=== PATIENT | male | born 1970 | race Caucasian/White ===

== ENCOUNTER 2017-07-08 08:32 | Emergency (ER) | payer OTHER ==
[~2017-07-08] VITALS: Ht 172.7 cm; Wt 76.6 kg
[~2017-07-08 08:32] MED LIST: ACET-784 PO; GABA600T PO; ISON300 PO; LAMO100 PO; LAMO100T56 PO; LEVE500T53 PO; OLAN5TAB2 PO; PHEN100C23 PO; PHEN250I IV; PHEN50TA PO; PHENY100 PO; QUET50TA PO; SEIZURE MED PO; TOPI100 PO; TOPI100T9 PO
[2017-07-08] MEDS ORDERED: PHENYTOIN SODIUM 750 MG in SODIUM CHLORIDE 0.9% 100 ML IV ONE (10:00)
[2017-07-08] MEDS ORDERED: LORazepam 2 MG/ML VIAL IVP ONE (10:00)
[2017-07-08] MEDS ORDERED: LORazepam 2 MG/ML VIAL ONE (10:01)
[2017-07-08 11:17] LABS: GLUCOSE,POINT OF CARE 113 MG/DL (70-110)
[2017-07-08 13:38] VITALS: BP 106/55
== END 2017-07-08 14:43 | disposition home or self-care (01) ==
LOC: EMS 08:34
DX: G40.909 Epilepsy, unspecified, not intractable, without status epilepticus (principal); R79.1 Abnormal coagulation profile
CPT/HCPCS: 36415; 80185; 82962; 96365; 96366; 96375; 99285; J1165; J2060; J7050; 99284

== ENCOUNTER 2023-03-22 06:48 | Inpatient (IN) | payer MEDICAID, OTHER ==
[~2023-03-22] VITALS: Ht 172.7 cm; Wt 69.3 kg
[~2023-03-22 06:48] MED LIST changes: -ACET-784 PO; +CARB100 PO; +GABA-1216 PO; -GABA600T PO; -ISON300 PO; -LAMO100 PO; -LAMO100T56 PO; -LEVE500T53 PO; -OLAN5TAB2 PO; -PHEN250I IV; -PHEN50TA PO; -PHENY100 PO; -QUET50TA PO; -SEIZURE MED PO; -TOPI100 PO; -TOPI100T9 PO
[2023-03-22 08:38] LABS: BASOPHILS % (AUTO) 0.7 % (0.0-2.0); EOSINOPHILS % (AUTO) 0.3 % (1.0-6.0); HEMATOCRIT 42.9 % (41-53); LYMPHOCYTES # (AUTO) 0.7 K/uL (1.0-4.8); LYMPHOCYTES % (AUTO) 9.2 % (22.0-44.0); MEAN CORPUSCULAR HEMOGLOBIN 28.5 pg (26.0-34.0); MEAN CORPUSCULAR HGB CONC 32.5 G/dL (31.0-37.0); MEAN CORPUSCULAR VOLUME 88 fL (80-100); MONOCYTES # (AUTO) 0.2 K/uL (0.1-1.0); MONOCYTES % (AUTO) 2.9 % (2.0-9.0); NEUTROPHILS # (AUTO) 6.4 K/uL (1.8-7.7); PLATELET COUNT (AUTO) 161 K/uL (150-450); RED CELL DISTRIBUTION WIDTH 15.5 % (11.5-14.5)
[2023-03-22 08:39] LABS: NEUTROPHILS % (AUTO) 86.9 % (40.0-70.0)
[2023-03-22 08:53] LABS: ANION GAP 9 mmol/L (8-16); CALCIUM, TOTAL 9.1 mg/dL (8.8-10.5); CARBON DIOXIDE 24 mmol/L (22-29); CHLORIDE 105 mmol/L (98-107); CREATININE 0.78 mg/dL (0.60-1.30); GLOMERULAR FILTR. RATE CALC > 60 mL/min (>60); GLUCOSE,RANDOM 95 mg/dL (70-110); POTASSIUM 4.2 mmol/L (3.5-5.1); SODIUM SERUM 138 mmol/L (136-145); UREA NITROGEN, BLOOD 9 mg/dL (7-18)
[2023-03-22 08:59] LABS: ALANINE AMINOTRANSFERASE 27 U/L (12-78); ALBUMIN 3.9 g/dL (3.4-5.0); ALKALINE PHOSPHATASE 63 U/L (46-116); ASPARTATE AMINOTRANSFERASE 29 U/L (15-37); BILIRUBIN,TOTAL 0.5 mg/dL (0.1-1.0); TOTAL PROTEIN, SERUM 7.5 g/dL (6.4-8.2)
[2023-03-22 09:01] LABS: PHENYTOIN (DILANTIN) < 0.5 mcg/mL (10.0-20.0)
[2023-03-22] MEDS ORDERED: PHENYTOIN SODIUM 100 MG ER CAPSULE PO ONE (09:15)
[2023-03-22] MEDS ORDERED: PHENYTOIN SODIUM 500 MG in SODIUM CHLORIDE 0.9% 100 ML IV ONE (09:15)
[2023-03-22] MEDS ORDERED: LORazepam 2 MG/ML VIAL IVP ONE (10:00)
[2023-03-22] MEDS ORDERED: ACETAMINOPHEN 325 MG TABLET PO PRN (10:45)
[2023-03-22] MEDS ORDERED: LORazepam 2 MG/ML VIAL IVP PRN (10:45)
[2023-03-22] MEDS ORDERED: ONDANSETRON HCL 4 MG/2 ML VIAL IVP PRN (10:45)
[2023-03-22] MEDS ORDERED: CARB200T6 PO (11:04)
[2023-03-22] MEDS ORDERED: LEVE750T10 PO (11:04)
[2023-03-22] MEDS: HEPARIN SODIUM,PORCINE 5,000 UNITS/ML VIAL SQ SCH (16:21)
[2023-03-22] MEDS ORDERED: PHENYTOIN 100 MG/4 ML SUSPENSION UDCUP PO SCH (21:00)
[2023-03-22] MEDS: DOCUSATE SODIUM 100 MG CAPSULE PO SCH (21:00)
[2023-03-22 22:09] VITALS: BP 110/71
[2023-03-23] MEDS: NICOTINE 14 MG/24 HOUR PATCH TD SCH ×2 (00:01→09:03)
[2023-03-23 01:13] VITALS: BP 106/65
[2023-03-23 05:29] VITALS: BP 100/69
[2023-03-23 08:36] VITALS: BP 102/70
[2023-03-23] MEDS ORDERED: FAMOTIDINE 20 MG TABLET PO SCH (09:00)
[2023-03-23] MEDS: DOCUSATE SODIUM 100 MG CAPSULE PO SCH (09:00)
[2023-03-23] MEDS: HEPARIN SODIUM,PORCINE 5,000 UNITS/ML VIAL SQ SCH ×2 (09:02)
[2023-03-23 12:05] VITALS: BP 102/71
== END 2023-03-23 13:35 | disposition left against medical advice (07) | DRG 53 ==
LOC: EMS 06:49 → AHU 12:29 → 5S 18:43
PROVIDERS: ADMIT Internal Medicine; ATTEND Internal Medicine
DX: G40.909 Epilepsy, unspecified, not intractable, without status epilepticus (principal); Z87.820 Personal history of traumatic brain injury; Z91.199 Patient's noncompliance with other medical treatment and regimen due to unspecified reason; Z87.891 Personal history of nicotine dependence
CPT/HCPCS: 70450; 71045; 80053; 80185; 85025; 87081; 93005; 97116; 97161; 99285; J1165; J1644; J2060; J7050; 36415-L1; 36415-TC

== ENCOUNTER 2023-06-30 18:05 | Inpatient (IN) | payer OTHER ==
[~2023-06-30] VITALS: Ht 177.8 cm; Wt 77.5 kg
[~2023-06-30 18:05] MED LIST changes: -CARB100 PO; +CARB100T12 PO; +CARB200T6 PO; +LEVE750T10 PO; +PHEN100C10 PO
[2023-06-30 19:31] LABS: BASOPHILS % (AUTO) 0.8 % (0.0-2.0); EOSINOPHILS % (AUTO) 1.1 % (1.0-6.0); HEMATOCRIT 40.7 % (41-53); LYMPHOCYTES # (AUTO) 1.2 K/uL (1.0-4.8); LYMPHOCYTES % (AUTO) 25.8 % (22.0-44.0); MEAN CORPUSCULAR HEMOGLOBIN 27.1 pg (26.0-34.0); MEAN CORPUSCULAR HGB CONC 31.9 G/dL (31.0-37.0); MEAN CORPUSCULAR VOLUME 85 fL (80-100); MONOCYTES # (AUTO) 0.4 K/uL (0.1-1.0); MONOCYTES % (AUTO) 8.1 % (2.0-9.0); NEUTROPHILS % (AUTO) 64.2 % (40.0-70.0); PLATELET COUNT (AUTO) 183 K/uL (150-450); RED BLOOD CELL COUNT(AUTO) 4.78 MIL/uL (4.50-5.90); RED CELL DISTRIBUTION WIDTH 13.8 % (11.5-14.5)
[2023-06-30 19:39] LABS: ANION GAP 10 mmol/L (8-16); CALCIUM, TOTAL 9.1 mg/dL (8.8-10.5); CARBON DIOXIDE 25 mmol/L (22-29); CHLORIDE 105 mmol/L (98-107); CREATININE 0.96 mg/dL (0.60-1.30); GLOMERULAR FILTR. RATE CALC > 60 mL/min (>60); GLUCOSE,RANDOM 97 mg/dL (70-110); SODIUM SERUM 140 mmol/L (136-145)
[2023-06-30] MEDS ORDERED: SODIUM CHLORIDE 0.9% 1,000 ML IV ONE (19:45)
[2023-06-30 20:04] LABS: ALANINE AMINOTRANSFERASE 15 U/L (12-78); ALBUMIN 3.8 g/dL (3.4-5.0); ALKALINE PHOSPHATASE 60 U/L (46-116); ASPARTATE AMINOTRANSFERASE 14 U/L (15-37); BILIRUBIN,TOTAL 0.7 mg/dL (0.1-1.0); CREATINE KINASE, TOTAL ONLY 90 U/L (39-308); PHENYTOIN (DILANTIN) < 0.5 mcg/mL (10.0-20.0); TOTAL PROTEIN, SERUM 8.1 g/dL (6.4-8.2)
[2023-06-30 20:05] LABS: CARBAMAZEPINE (TEGRETOL) < 0.5 mcg/mL (4.0-12.0)
[2023-06-30 20:12] LABS: APPEARANCE,URINE CLEAR (CLEAR); BILIRUBIN,URINE NEGATIVE (NEGATIVE); GLUCOSE, URINE (UA) NEGATIVE (NEGATIVE); KETONES,URINE NEGATIVE (NEGATIVE); LEUKOCYTE ESTERASE ,URINE NEGATIVE (NEGATIVE); NITRATE,URINE NEGATIVE (NEGATIVE); OCCULT BLOOD,URINE NEGATIVE (NEGATIVE); PROTEIN,URINE 30-70 mg/dL (NEGATIVE); SPECIFIC GRAVITIY, URINE 1.038 (1.003-1.030); UROBILINOGEN,URINE <=1.0 mg/dL (<=1.0)
[2023-06-30] MEDS ORDERED: CarBAMazepine 200 MG TABLET PO ONE (20:15)
[2023-06-30] MEDS ORDERED: PHENYTOIN SODIUM 100 MG ER CAPSULE PO ONE (20:15)
[2023-06-30 20:19] LABS: AMPHET/METH SCREEN,URINE NEGATIVE (NEGATIVE); BARBITURATE SCREEN, URINE NEGATIVE (NEGATIVE); BENZODIAZEPINES SCREEN,URINE NEGATIVE (NEGATIVE); CANNABINOID SCREEN,URINE NEGATIVE (NEGATIVE); COCAINE SCREEN,URINE NEGATIVE (NEGATIVE); METHADONE SCREEN, URINE NEGATIVE (NEGATIVE); OPIATE SCREEN,URINE NEGATIVE (NEGATIVE); PHENCYCLIDINE SCREEN,URINE NEGATIVE (NEGATIVE)
[2023-06-30] MEDS ORDERED: ONDANSETRON HCL 4 MG/2 ML VIAL IVP PRN (20:45)
[2023-06-30] MEDS ORDERED: ACETAMINOPHEN 325 MG TABLET PO PRN (20:45)
[2023-06-30 23:01] VITALS: BP 111/74; PULSE 75; RESP 20; TEMP 97.6
[2023-07-01 04:10] VITALS: BP 128/74; PULSE 73; RESP 16; TEMP 97.7
[2023-07-01 07:11] VITALS: BP 102/56; PULSE 71; RESP 18; TEMP 97.4
[2023-07-01 10:51] VITALS: BP 97/58; PULSE 71; RESP 19; TEMP 98
[2023-07-01] MEDS ORDERED: MORPHINE SULFATE 2 MG/ML SYRINGE IVP PRN (12:15)
[2023-07-01] MEDS ORDERED: PHENYTOIN SODIUM 750 MG in SODIUM CHLORIDE 0.9% 100 ML IV ONE (12:15)
[2023-07-01] MEDS ORDERED: ALBUTEROL SULFATE 2.5 MG/0.5 ML NEB SOLUTION NEB PRN (12:15)
[2023-07-01] MEDS ORDERED: ONDANSETRON HCL 4 MG/2 ML VIAL IVP PRN (12:15)
[2023-07-01] MEDS ORDERED: ZOLPIDEM TARTRATE 5 MG TABLET PO PRN (12:15)
[2023-07-01] MEDS ORDERED: BISACODYL 10 MG RECTAL RECTAL SUPPOSITORY PR PRN (12:15)
[2023-07-01] MEDS ORDERED: PHENYTOIN SODIUM 100 MG ER CAPSULE PO SCH (12:15)
[2023-07-01] MEDS ORDERED: IPRATROPIUM BROMIDE 0.5 MG/2.5 ML NEB SOLUTION NEB PRN (12:15)
[2023-07-01] MEDS ORDERED: MAGNESIUM HYDROXIDE SUSPENSION 30 ML UDCUP PO PRN (12:15)
[2023-07-01] MEDS ORDERED: SODIUM CHLORIDE 0.9% 250 ML IV ONE (13:21)
[2023-07-01] MEDS: GABAPENTIN 100 MG CAPSULE PO SCH (13:25)
[2023-07-01] MEDS: LevETIRAcetam 250 MG TABLET PO SCH ×2 (13:25→20:47)
[2023-07-01 14:55] VITALS: BP 108/65; PULSE 78; RESP 19; TEMP 98.2
[2023-07-01] MEDS ORDERED: LORazepam 2 MG/ML VIAL IVP ONE (15:30)
[2023-07-01] MEDS ORDERED: LORazepam 2 MG/ML VIAL ONE (15:31)
[2023-07-01] MEDS: HEPARIN SODIUM,PORCINE 5,000 UNITS/ML VIAL SQ SCH (17:29)
[2023-07-01] MEDS: CarBAMazepine 200 MG TABLET PO SCH ×2 (17:29→20:47)
[2023-07-01 20:29] VITALS: BP 110/72; PULSE 91; RESP 18; TEMP 98
[2023-07-01] MEDS: PHENYTOIN SODIUM 100 MG ER CAPSULE PO SCH (20:46)
[2023-07-02] MEDS: HEPARIN SODIUM,PORCINE 5,000 UNITS/ML VIAL SQ SCH ×3 (00:41→15:56)
[2023-07-02 00:55] VITALS: BP 136/82; PULSE 96; RESP 18; TEMP 97.9
[2023-07-02] MEDS ORDERED: LORazepam 2 MG/ML VIAL IVP ONE (04:45)
[2023-07-02 05:28] VITALS: BP 112/68; PULSE 98; RESP 17; TEMP 98
[2023-07-02 07:45] VITALS: BP 101/62; PULSE 55; RESP 20; TEMP 97.4
[2023-07-02] MEDS: LevETIRAcetam 250 MG TABLET PO SCH ×2 (08:15→21:21)
[2023-07-02] MEDS: CarBAMazepine 200 MG TABLET PO SCH ×3 (08:15→21:21)
[2023-07-02] MEDS: PHENYTOIN SODIUM 100 MG ER CAPSULE PO SCH ×2 (08:15→21:21)
[2023-07-02] MEDS: GABAPENTIN 100 MG CAPSULE PO SCH (08:15)
[2023-07-02] MEDS: PANTOPRAZOLE SODIUM 40 MG DR TABLET PO SCH (08:16)
[2023-07-02 12:07] LABS: CARBAMAZEPINE (TEGRETOL) 6.2 mcg/mL (4.0-12.0); PHENYTOIN (DILANTIN) 15.5 mcg/mL (10.0-20.0)
[2023-07-02 13:03] VITALS: BP 110/71; PULSE 91; RESP 18; TEMP 97.7
[2023-07-02 15:29] VITALS: BP 111/74; PULSE 96; RESP 18; TEMP 99.1
[2023-07-02 20:20] VITALS: BP 115/76; PULSE 87; RESP 19; TEMP 97.6
[2023-07-03 00:18] VITALS: BP 93/56; PULSE 82; RESP 17; TEMP 97.8
[2023-07-03 04:52] VITALS: BP 101/59; PULSE 81; RESP 17; TEMP 97.8
[2023-07-03 07:31] VITALS: BP 90/51; PULSE 83; RESP 17; TEMP 98
[2023-07-03] MEDS: HEPARIN SODIUM,PORCINE 5,000 UNITS/ML VIAL SQ SCH ×3 (09:32→16:41)
[2023-07-03] MEDS: CarBAMazepine 200 MG TABLET PO SCH ×3 (09:32→21:02)
[2023-07-03] MEDS: PHENYTOIN SODIUM 100 MG ER CAPSULE PO SCH ×2 (09:32→21:01)
[2023-07-03] MEDS: ACETAMINOPHEN 325 MG TABLET PO PRN (09:32)
[2023-07-03] MEDS: PANTOPRAZOLE SODIUM 40 MG DR TABLET PO SCH (09:32)
[2023-07-03] MEDS: LevETIRAcetam 250 MG TABLET PO SCH ×2 (09:33→21:01)
[2023-07-03] MEDS: GABAPENTIN 100 MG CAPSULE PO SCH (09:33)
[2023-07-03 11:51] VITALS: BP 102/71; PULSE 110; RESP 18; TEMP 97.7
[2023-07-03] MEDS: LORazepam 2 MG/ML VIAL IVP PRN ×2 (12:52→21:56)
[2023-07-03 19:41] VITALS: BP 103/61; PULSE 93; RESP 20; TEMP 98.4
[2023-07-03 23:33] VITALS: BP 103/68; PULSE 64; RESP 19; TEMP 97.6
[2023-07-04] MEDS: HEPARIN SODIUM,PORCINE 5,000 UNITS/ML VIAL SQ SCH ×4 (00:52→23:57)
[2023-07-04 04:13] VITALS: BP 100/62; PULSE 67; RESP 20; TEMP 97.9
[2023-07-04 07:37] VITALS: BP 113/66; PULSE 85; RESP 18; TEMP 98
[2023-07-04] MEDS: PANTOPRAZOLE SODIUM 40 MG DR TABLET PO SCH (09:02)
[2023-07-04] MEDS: PHENYTOIN SODIUM 100 MG ER CAPSULE PO SCH ×2 (09:02→20:00)
[2023-07-04] MEDS: CarBAMazepine 200 MG TABLET PO SCH ×3 (09:02→19:59)
[2023-07-04] MEDS: LevETIRAcetam 250 MG TABLET PO SCH ×2 (09:03→20:00)
[2023-07-04] MEDS: GABAPENTIN 100 MG CAPSULE PO SCH (09:03)
[2023-07-04 11:37] VITALS: BP 111/76; PULSE 85; RESP 18; TEMP 97.6
[2023-07-04 13:25] LABS: COVID AG,FIA SOURCE NASAL SWAB
[2023-07-04 15:43] VITALS: BP 93/56; PULSE 80; RESP 18; TEMP 97.8
[2023-07-04 20:00] VITALS: BP 115/68; PULSE 78; RESP 20; TEMP 97.6
[2023-07-05 00:14] VITALS: BP 106/69; PULSE 86; RESP 20; TEMP 97.6
[2023-07-05] MEDS: LORazepam 2 MG/ML VIAL IVP PRN (01:41)
[2023-07-05] MEDS ORDERED: HALOPERIDOL LACTATE 5 MG/ML VIAL IM ONE (01:45)
[2023-07-05 04:40] VITALS: BP 137/75; PULSE 84; RESP 20; TEMP 97.7
[2023-07-05 07:43] VITALS: BP 107/76; PULSE 82; RESP 28; TEMP 98
[2023-07-05] MEDS: HEPARIN SODIUM,PORCINE 5,000 UNITS/ML VIAL SQ SCH ×2 (09:53→16:34)
[2023-07-05] MEDS: PHENYTOIN SODIUM 100 MG ER CAPSULE PO SCH ×2 (09:54→20:34)
[2023-07-05] MEDS: GABAPENTIN 100 MG CAPSULE PO SCH (09:55)
[2023-07-05] MEDS: CarBAMazepine 200 MG TABLET PO SCH ×3 (09:55→20:34)
[2023-07-05] MEDS: LevETIRAcetam 250 MG TABLET PO SCH ×2 (09:55→20:34)
[2023-07-05] MEDS: PANTOPRAZOLE SODIUM 40 MG DR TABLET PO SCH (09:56)
[2023-07-05 11:14] VITALS: BP 98/69; PULSE 80; RESP 20; TEMP 98.2
[2023-07-05 15:26] VITALS: BP 92/68; PULSE 64; RESP 18; TEMP 98
[2023-07-05 20:00] VITALS: BP 109/77; PULSE 93; RESP 18; TEMP 98.1
[2023-07-05] MEDS: HYDROCODONE/ACETAMINOPHEN 5-325 MG TABLET PO PRN (20:15)
[2023-07-06 00:50] VITALS: BP 111/74; PULSE 95; RESP 18; TEMP 97.6
[2023-07-06] MEDS: HEPARIN SODIUM,PORCINE 5,000 UNITS/ML VIAL SQ SCH ×3 (00:58→16:42)
[2023-07-06] MEDS: ACETAMINOPHEN 325 MG TABLET PO PRN ×2 (03:36→20:30)
[2023-07-06 04:36] VITALS: BP 105/68; PULSE 87; RESP 18; TEMP 97.7
[2023-07-06 07:34] VITALS: BP 99/68; PULSE 88; RESP 18; TEMP 98.1
[2023-07-06] MEDS: GABAPENTIN 100 MG CAPSULE PO SCH (07:52)
[2023-07-06] MEDS: PHENYTOIN SODIUM 100 MG ER CAPSULE PO SCH ×2 (07:53→20:29)
[2023-07-06] MEDS: CarBAMazepine 200 MG TABLET PO SCH ×3 (07:53→20:29)
[2023-07-06] MEDS: LevETIRAcetam 250 MG TABLET PO SCH ×2 (07:53→20:29)
[2023-07-06] MEDS: PANTOPRAZOLE SODIUM 40 MG DR TABLET PO SCH (07:53)
[2023-07-06] MEDS: HYDROCODONE/ACETAMINOPHEN 5-325 MG TABLET PO PRN (09:23)
[2023-07-06 11:44] VITALS: BP 112/71; PULSE 90; RESP 18; TEMP 97
[2023-07-06 12:02] LABS: COVID AG,FIA SOURCE NASAL SWAB
[2023-07-06 15:44] VITALS: BP 92/62; PULSE 94; RESP 18; TEMP 98
[2023-07-06 19:45] VITALS: BP 114/68; PULSE 96; RESP 18; TEMP 98.9
== END 2023-07-06 21:55 | DRG 53 ==
LOC: EMS 18:06 → 5S 21:00
PROVIDERS: ADMIT Hospitalist; ATTEND Hospitalist
PROC: 4A00X4Z Measurement of Central Nervous Electrical Activity, External Approach (ICD-10-PCS; principal; 2023-06-30)
DX: G40.909 Epilepsy, unspecified, not intractable, without status epilepticus (principal); F29 Unspecified psychosis not due to a substance or known physiological condition; G47.00 Insomnia, unspecified; Z20.822 Contact with and (suspected) exposure to COVID-19; Z87.820 Personal history of traumatic brain injury; Z79.899 Other long term (current) drug therapy; Z87.891 Personal history of nicotine dependence
CPT/HCPCS: 70450; 70551; 71045; 80053; 80156; 80185; 80307; 81003; 82140; 82550; 85025; 93005; 95816; 99285; G0480; G0482; J1165; J1630; J1644; J2060; J7050; 36415-L1; 36415-TC

== ENCOUNTER 2023-07-04 10:54 | Inpatient (IN) | payer MEDICAID ==
[~2023-07-04] VITALS: Ht 170.2 cm; Wt 80.8 kg
[2023-07-06] MEDS ORDERED: LORazepam 2 MG TABLET PO PRN (16:30)
[2023-07-06] MEDS ORDERED: HALOPERIDOL 5 MG TABLET PO PRN (16:30)
[2023-07-06] MEDS ORDERED: ZOLPIDEM TARTRATE 10 MG TABLET PO PRN (16:30)
[2023-07-06] MEDS ORDERED: GuaiFENesin/D-METHORPHAN [SUGAR-FREE] 200-20MG/10 ML SYRUP UDCUP PO PRN (23:00)
[2023-07-06] MEDS ORDERED: DOCUSATE SODIUM 100 MG CAPSULE PO PRN (23:00)
[2023-07-06] MEDS ORDERED: MAGNESIUM HYDROXIDE SUSPENSION 30 ML UDCUP PO PRN (23:00)
[2023-07-06] MEDS ORDERED: LOPERAMIDE HCL 2 MG CAPSULE PO PRN (23:00)
[2023-07-06] MEDS ORDERED: IBUPROFEN 400 MG TABLET PO PRN (23:00)
[2023-07-06] MEDS ORDERED: NICOTINE 14 MG/24 HOUR PATCH TD PRN (23:00)
[2023-07-06] MEDS ORDERED: PETROLATUM,WHITE 28 GM JELLY TP PRN (23:00)
[2023-07-06] MEDS ORDERED: CloNIDine HCL 0.1 MG TABLET PO PRN (23:00)
[2023-07-06] MEDS ORDERED: ALBUTEROL SULFATE HFA 90 MCG/PUFF 8 GM INHALER IH PRN (23:00)
[2023-07-06] MEDS ORDERED: ONDANSETRON HCL 4 MG TABLET PO PRN (23:00)
[2023-07-06] MEDS ORDERED: MAG HYDROX/AL HYDROX/SIMETH ES 30 ML SUSPENSION UDCUP PO PRN (23:00)
[2023-07-06] MEDS ORDERED: ACETAMINOPHEN 325 MG TABLET PO PRN (23:00)
[2023-07-06 23:10] VITALS: BP 124/69; PULSE 88; RESP 19; TEMP 97.7; O2SAT 96
[2023-07-06 23:21] VITALS: BP 124/69; PULSE 88; RESP 19; TEMP 97.7
[2023-07-07] MEDS: CarBAMazepine 200 MG TABLET PO SCH ×3 (10:39→16:04)
[2023-07-07] MEDS: PANTOPRAZOLE SODIUM 40 MG DR TABLET PO SCH (10:39)
[2023-07-07] MEDS: LevETIRAcetam 250 MG TABLET PO SCH ×2 (10:40→16:05)
[2023-07-07] MEDS: PHENYTOIN SODIUM 100 MG ER CAPSULE PO SCH ×2 (10:40→16:04)
[2023-07-07 11:14] LABS: BASOPHILS % (AUTO) 0.6 % (0.0-2.0); EOSINOPHILS % (AUTO) 2.1 % (1.0-6.0); HEMATOCRIT 42.5 % (41-53); HEMOGLOBIN 13.9 g/dL (13.5-17.5); LYMPHOCYTES # (AUTO) 1.2 K/uL (1.0-4.8); LYMPHOCYTES % (AUTO) 25.6 % (22.0-44.0); MEAN CORPUSCULAR HEMOGLOBIN 27.9 pg (26.0-34.0); MEAN CORPUSCULAR HGB CONC 32.7 G/dL (31.0-37.0); MEAN CORPUSCULAR VOLUME 85 fL (80-100); MONOCYTES # (AUTO) 0.3 K/uL (0.1-1.0); NEUTROPHILS # (AUTO) 2.9 K/uL (1.8-7.7); NEUTROPHILS % (AUTO) 64.7 % (40.0-70.0); PLATELET COUNT (AUTO) 147 K/uL (150-450); RED BLOOD CELL COUNT(AUTO) 4.98 MIL/uL (4.50-5.90); RED CELL DISTRIBUTION WIDTH 14.1 % (11.5-14.5)
[2023-07-07 11:38] LABS: ALANINE AMINOTRANSFERASE 28 U/L (12-78); ALBUMIN 3.5 g/dL (3.4-5.0); ALKALINE PHOSPHATASE 65 U/L (46-116); ANION GAP 9 mmol/L (8-16); ASPARTATE AMINOTRANSFERASE 29 U/L (15-37); BILIRUBIN,TOTAL 0.2 mg/dL (0.1-1.0); CALCIUM, TOTAL 8.5 mg/dL (8.8-10.5); CARBON DIOXIDE 28 mmol/L (22-29); CHLORIDE 101 mmol/L (98-107); CREATININE 0.96 mg/dL (0.60-1.30); GLOMERULAR FILTR. RATE CALC > 60 mL/min (>60); GLUCOSE,RANDOM 93 mg/dL (70-110); POTASSIUM 4.4 mmol/L (3.5-5.1); SODIUM SERUM 138 mmol/L (136-145); THYROID STIMULATING HORMONE 1.58 uIU/mL (0.36-3.74); TOTAL PROTEIN, SERUM 7.1 g/dL (6.4-8.2)
[2023-07-07 12:03] LABS: HEMOGLOBIN A1C 5.4 % (3.8-5.6)
[2023-07-07 15:35] VITALS: BP 129/79; PULSE 80; RESP 18; TEMP 97.7; O2SAT 97
[2023-07-07 20:03] VITALS: BP 108/64; PULSE 93; RESP 18; TEMP 98.5; O2SAT 98
[2023-07-08 09:03] VITALS: BP 96/66; PULSE 76; RESP 18; TEMP 98.2; O2SAT 96
[2023-07-08] MEDS: CarBAMazepine 200 MG TABLET PO SCH ×3 (09:53→18:33)
[2023-07-08] MEDS: LevETIRAcetam 250 MG TABLET PO SCH ×2 (09:53→18:33)
[2023-07-08] MEDS: PANTOPRAZOLE SODIUM 40 MG DR TABLET PO SCH (09:54)
[2023-07-08] MEDS: PHENYTOIN SODIUM 100 MG ER CAPSULE PO SCH ×2 (09:54→18:33)
[2023-07-08 20:13] VITALS: BP 117/73; PULSE 79; RESP 18; TEMP 97.1; O2SAT 97
[2023-07-09 08:48] VITALS: BP 128/71; PULSE 83; RESP 17; TEMP 97.6; O2SAT 98
[2023-07-09] MEDS: PANTOPRAZOLE SODIUM 40 MG DR TABLET PO SCH (09:07)
[2023-07-09] MEDS: CarBAMazepine 200 MG TABLET PO SCH ×3 (09:07→18:21)
[2023-07-09] MEDS: LevETIRAcetam 250 MG TABLET PO SCH ×2 (09:07→18:21)
[2023-07-09] MEDS: PHENYTOIN SODIUM 100 MG ER CAPSULE PO SCH ×2 (09:08→18:21)
[2023-07-09] MEDS: RisperiDONE 2 MG TABLET PO SCH (09:08)
[2023-07-09 20:35] VITALS: BP 116/72; PULSE 89; RESP 16; TEMP 97.7; O2SAT 97
[2023-07-10 08:45] VITALS: BP 107/66; PULSE 78; RESP 17; TEMP 97; O2SAT 98
[2023-07-10] MEDS: LevETIRAcetam 250 MG TABLET PO SCH ×2 (09:43→16:40)
[2023-07-10] MEDS: CarBAMazepine 200 MG TABLET PO SCH ×3 (09:43→16:40)
[2023-07-10] MEDS: PHENYTOIN SODIUM 100 MG ER CAPSULE PO SCH ×2 (09:44→16:40)
[2023-07-10] MEDS: RisperiDONE 2 MG TABLET PO SCH (09:44)
[2023-07-10] MEDS: PANTOPRAZOLE SODIUM 40 MG DR TABLET PO SCH (09:44)
[2023-07-10 20:24] VITALS: BP 94/57; PULSE 90; RESP 18; TEMP 97.4
[2023-07-11 08:41] VITALS: BP 119/70; PULSE 89; RESP 18; TEMP 97.7; O2SAT 100
[2023-07-11] MEDS: PANTOPRAZOLE SODIUM 40 MG DR TABLET PO SCH (08:50)
[2023-07-11] MEDS: CarBAMazepine 200 MG TABLET PO SCH ×3 (08:50→17:10)
[2023-07-11] MEDS: LevETIRAcetam 250 MG TABLET PO SCH ×2 (08:50→17:11)
[2023-07-11] MEDS: RisperiDONE 2 MG TABLET PO SCH (08:50)
[2023-07-11 09:09] LABS: CARBAMAZEPINE (TEGRETOL) 4.6 mcg/mL (4.0-12.0); PHENYTOIN (DILANTIN) 13.7 mcg/mL (10.0-20.0)
[2023-07-11] MEDS: PHENYTOIN SODIUM 100 MG ER CAPSULE PO SCH ×2 (09:36→17:10)
[2023-07-11 20:43] VITALS: BP 107/64; PULSE 69; RESP 17; TEMP 98.5; O2SAT 97
[2023-07-12 00:15] VITALS: BP 138/87; PULSE 90; RESP 19; TEMP 97.1; O2SAT 99
[2023-07-12 00:30] VITALS: BP 117/71; PULSE 87; RESP 18; TEMP 98.5; O2SAT 97
[2023-07-12 01:00] VITALS: BP 104/74; PULSE 88; RESP 17; TEMP 97.7; O2SAT 99
[2023-07-12] MEDS: LevETIRAcetam 250 MG TABLET PO SCH ×2 (08:31→16:03)
[2023-07-12] MEDS: CarBAMazepine 200 MG TABLET PO SCH ×3 (08:32→16:04)
[2023-07-12] MEDS: GABAPENTIN 100 MG CAPSULE PO SCH (08:32)
[2023-07-12] MEDS: PANTOPRAZOLE SODIUM 40 MG DR TABLET PO SCH (08:32)
[2023-07-12] MEDS: PHENYTOIN SODIUM 100 MG ER CAPSULE PO SCH ×2 (08:32→16:04)
[2023-07-12] MEDS: RisperiDONE 2 MG TABLET PO SCH (08:32)
[2023-07-12 09:03] VITALS: BP 109/75; PULSE 89; RESP 18; TEMP 97.6; O2SAT 100
[2023-07-12 20:32] VITALS: BP 105/67; PULSE 93; RESP 19; TEMP 99; O2SAT 97
[2023-07-13] MEDS: LevETIRAcetam 250 MG TABLET PO SCH ×2 (08:13→16:10)
[2023-07-13] MEDS: PANTOPRAZOLE SODIUM 40 MG DR TABLET PO SCH (08:14)
[2023-07-13] MEDS: PHENYTOIN SODIUM 100 MG ER CAPSULE PO SCH ×2 (08:14→16:10)
[2023-07-13] MEDS: CarBAMazepine 200 MG TABLET PO SCH ×3 (08:14→16:10)
[2023-07-13] MEDS: RisperiDONE 2 MG TABLET PO SCH (08:14)
[2023-07-13] MEDS: GABAPENTIN 100 MG CAPSULE PO SCH (08:14)
[2023-07-13 08:24] VITALS: BP 106/69; PULSE 90; RESP 18; TEMP 97.7; O2SAT 95
[2023-07-13 22:19] VITALS: BP 103/63; PULSE 90; RESP 18; TEMP 97.7
[2023-07-14] MEDS: LevETIRAcetam 250 MG TABLET PO SCH ×2 (10:04→16:45)
[2023-07-14] MEDS: PHENYTOIN SODIUM 100 MG ER CAPSULE PO SCH ×2 (10:04→16:43)
[2023-07-14] MEDS: GABAPENTIN 100 MG CAPSULE PO SCH (10:05)
[2023-07-14] MEDS: RisperiDONE 2 MG TABLET PO SCH (10:05)
[2023-07-14] MEDS: CarBAMazepine 200 MG TABLET PO SCH ×3 (10:05→16:42)
[2023-07-14] MEDS: PANTOPRAZOLE SODIUM 40 MG DR TABLET PO SCH (10:07)
[2023-07-14 13:50] VITALS: BP 109/76; PULSE 87; RESP 18; TEMP 98.1
[2023-07-14 19:59] VITALS: BP 118/74; PULSE 90; RESP 19; TEMP 98.1; O2SAT 95
[2023-07-15] MEDS: PHENYTOIN SODIUM 100 MG ER CAPSULE PO SCH ×2 (09:14→16:36)
[2023-07-15] MEDS: GABAPENTIN 100 MG CAPSULE PO SCH (09:15)
[2023-07-15] MEDS: LevETIRAcetam 250 MG TABLET PO SCH ×2 (09:15→16:37)
[2023-07-15] MEDS: CarBAMazepine 200 MG TABLET PO SCH ×3 (09:15→16:37)
[2023-07-15] MEDS: RisperiDONE 2 MG TABLET PO SCH (09:15)
[2023-07-15] MEDS: PANTOPRAZOLE SODIUM 40 MG DR TABLET PO SCH (09:16)
[2023-07-15 09:20] VITALS: BP 98/64; PULSE 99; RESP 18; TEMP 97.8; O2SAT 97
[2023-07-15 20:23] VITALS: BP 109/73; PULSE 93; RESP 18; TEMP 97.4; O2SAT 97
[2023-07-16] MEDS: PHENYTOIN SODIUM 100 MG ER CAPSULE PO SCH ×2 (08:30→16:00)
[2023-07-16] MEDS: PANTOPRAZOLE SODIUM 40 MG DR TABLET PO SCH (08:30)
[2023-07-16] MEDS: GABAPENTIN 100 MG CAPSULE PO SCH (08:30)
[2023-07-16] MEDS: CarBAMazepine 200 MG TABLET PO SCH ×3 (08:30→16:00)
[2023-07-16] MEDS: RisperiDONE 2 MG TABLET PO SCH (08:30)
[2023-07-16] MEDS: LevETIRAcetam 250 MG TABLET PO SCH ×2 (08:31→15:59)
[2023-07-16 09:02] LABS: COVID AG,FIA SOURCE NASAL SWAB
[2023-07-16 09:35] VITALS: BP 128/82; PULSE 89; RESP 18; TEMP 97.7; O2SAT 98
[2023-07-16 21:54] VITALS: BP 107/72; PULSE 90; RESP 18; TEMP 97.5; O2SAT 96
[2023-07-17 09:08] VITALS: BP 97/64; PULSE 79; RESP 18; TEMP 98; O2SAT 96
[2023-07-17] MEDS: RisperiDONE 2 MG TABLET PO SCH (09:39)
[2023-07-17] MEDS: PHENYTOIN SODIUM 100 MG ER CAPSULE PO SCH ×2 (09:39→16:10)
[2023-07-17] MEDS: GABAPENTIN 100 MG CAPSULE PO SCH (09:39)
[2023-07-17] MEDS: PANTOPRAZOLE SODIUM 40 MG DR TABLET PO SCH (09:39)
[2023-07-17] MEDS: CarBAMazepine 200 MG TABLET PO SCH ×3 (09:39→16:10)
[2023-07-17] MEDS: LevETIRAcetam 250 MG TABLET PO SCH ×2 (09:39→16:11)
[2023-07-17 20:35] VITALS: BP 106/73; PULSE 84; RESP 18; TEMP 97.2; O2SAT 96
[2023-07-17 22:13] VITALS: BP 106/73; PULSE 84; RESP 18; TEMP 97.2; O2SAT 96
[2023-07-18 00:04] VITALS: TEMP 97.5
[2023-07-18 04:10] VITALS: TEMP 97.5
[2023-07-18] MEDS: PHENYTOIN SODIUM 100 MG ER CAPSULE PO SCH ×2 (08:45→18:25)
[2023-07-18] MEDS: PANTOPRAZOLE SODIUM 40 MG DR TABLET PO SCH (08:46)
[2023-07-18] MEDS: RisperiDONE 2 MG TABLET PO SCH (08:46)
[2023-07-18] MEDS: GABAPENTIN 100 MG CAPSULE PO SCH (08:46)
[2023-07-18] MEDS: CarBAMazepine 200 MG TABLET PO SCH ×3 (08:46→18:24)
[2023-07-18] MEDS: LevETIRAcetam 250 MG TABLET PO SCH ×2 (08:47→18:25)
[2023-07-18 09:40] VITALS: BP 109/73; PULSE 93; RESP 18; TEMP 98.2; O2SAT 99
[2023-07-18 12:47] VITALS: TEMP 98.1
[2023-07-18 16:26] VITALS: TEMP 98.4
[2023-07-18 20:56] VITALS: BP 122/77; PULSE 90; RESP 19; TEMP 98.7; O2SAT 95
[2023-07-19] MEDS: LevETIRAcetam 250 MG TABLET PO SCH ×2 (08:35→18:13)
[2023-07-19] MEDS: RisperiDONE 2 MG TABLET PO SCH (08:36)
[2023-07-19] MEDS: CarBAMazepine 200 MG TABLET PO SCH ×3 (08:36→18:13)
[2023-07-19] MEDS: PANTOPRAZOLE SODIUM 40 MG DR TABLET PO SCH (08:36)
[2023-07-19] MEDS: PHENYTOIN SODIUM 100 MG ER CAPSULE PO SCH ×2 (08:36→18:13)
[2023-07-19] MEDS: GABAPENTIN 100 MG CAPSULE PO SCH (08:36)
[2023-07-19 08:43] VITALS: BP 103/66; PULSE 84; RESP 18; TEMP 97.2; O2SAT 95
[2023-07-19 13:03] VITALS: BP 110/68; PULSE 84; RESP 18; TEMP 97.4; O2SAT 96
[2023-07-19 16:01] VITALS: TEMP 97.7
[2023-07-19 21:11] VITALS: BP 115/77; PULSE 72; RESP 18; TEMP 97.3; O2SAT 98
[2023-07-20 09:06] VITALS: BP 92/57; PULSE 77; RESP 18; TEMP 97; O2SAT 98
[2023-07-20] MEDS: CarBAMazepine 200 MG TABLET PO SCH ×3 (09:25→16:24)
[2023-07-20] MEDS: PANTOPRAZOLE SODIUM 40 MG DR TABLET PO SCH (09:25)
[2023-07-20] MEDS: RisperiDONE 2 MG TABLET PO SCH (09:25)
[2023-07-20] MEDS: PHENYTOIN SODIUM 100 MG ER CAPSULE PO SCH ×2 (09:25→16:24)
[2023-07-20] MEDS: LevETIRAcetam 250 MG TABLET PO SCH ×2 (09:25→16:24)
[2023-07-20] MEDS: GABAPENTIN 100 MG CAPSULE PO SCH (09:26)
[2023-07-20 12:10] VITALS: BP 108/68; PULSE 72; RESP 18; TEMP 97.4; O2SAT 98
[2023-07-20 16:49] VITALS: RESP 17; TEMP 97
[2023-07-20 22:26] VITALS: RESP 18; TEMP 97.9; O2SAT 97
[2023-07-21] VITALS: RESP 18
[2023-07-21 05:06] VITALS: RESP 18
[2023-07-21 06:19] LABS: COVID AG,FIA SOURCE NASAL SWAB
[2023-07-21] MEDS: CarBAMazepine 200 MG TABLET PO SCH ×2 (08:21→13:06)
[2023-07-21] MEDS: PANTOPRAZOLE SODIUM 40 MG DR TABLET PO SCH (08:21)
[2023-07-21] MEDS: LevETIRAcetam 250 MG TABLET PO SCH (08:21)
[2023-07-21] MEDS: PHENYTOIN SODIUM 100 MG ER CAPSULE PO SCH (08:21)
[2023-07-21] MEDS: RisperiDONE 2 MG TABLET PO SCH (08:21)
[2023-07-21] MEDS: GABAPENTIN 100 MG CAPSULE PO SCH (08:23)
[2023-07-21 09:02] VITALS: BP_SYST 105; BP_SYST 125; BP_DIAS 64; BP_DIAS 80; PULSE 79; PULSE 81; RESP 18; TEMP 98.1; O2SAT 96
[2023-07-21] MEDS ORDERED: PANT-31 PO (10:08)
[2023-07-21] MEDS ORDERED: RISP2TAB86 PO (11:59)
[2023-07-21] MEDS ORDERED: CARB-92 PO (11:59)
[2023-07-21] MEDS ORDERED: GABA-1216 PO (11:59)
[2023-07-21 12:11] VITALS: RESP 18; TEMP 97.8
== END 2023-07-21 15:06 | disposition home or self-care (01) | DRG 750 ==
LOC: 3EI 07-06 22:06
PROVIDERS: ADMIT Psychiatry & Neurology Child & Adolescent Psychiatry; ATTEND Psychiatry & Neurology Child & Adolescent Psychiatry
DX: F20.0 Paranoid schizophrenia (principal); G40.909 Epilepsy, unspecified, not intractable, without status epilepticus; F10.10 Alcohol abuse, uncomplicated; G47.00 Insomnia, unspecified; F41.9 Anxiety disorder, unspecified; F19.10 Other psychoactive substance abuse, uncomplicated; Z59.00 Homelessness unspecified; Z79.899 Other long term (current) drug therapy
CPT/HCPCS: 80053; 80061; 80156; 80185; 83036; 84443; 85025; 87081; G0482

== ENCOUNTER 2023-09-10 20:10 | Emergency (ER) | payer MEDICAID, OTHER ==
[~2023-09-10] VITALS: Ht 172.7 cm; Wt 79.0 kg
[~2023-09-10 20:10] MED LIST changes: +CARB-92 PO; -CARB100T12 PO; +DOCU-385 PO; +LEVE500T20 PO; +PANT-31 PO; -PHEN100C10 PO; +PHEN50 PO; +RISP2TAB86 PO
[2023-09-10 20:43] VITALS: TEMP 97.8
[2023-09-10 21:30] LABS: PH,URINE DRUG SCREEN 6.5 (5.0-8.0)
[2023-09-10 21:31] LABS: APPEARANCE,URINE CLEAR (CLEAR); BILIRUBIN,URINE NEGATIVE (NEGATIVE); COLOR,URINE COLORLESS (YELLOW); GLUCOSE, URINE (UA) NEGATIVE (NEGATIVE); KETONES,URINE NEGATIVE (NEGATIVE); LEUKOCYTE ESTERASE ,URINE NEGATIVE (NEGATIVE); NITRATE,URINE NEGATIVE (NEGATIVE); OCCULT BLOOD,URINE NEGATIVE (NEGATIVE); PH,URINE 6.5 (5.0-8.0); PROTEIN,URINE NEGATIVE (NEGATIVE); SPECIFIC GRAVITIY, URINE 1.007 (1.003-1.030); UROBILINOGEN,URINE <=1.0 mg/dL (<=1.0)
[2023-09-10 21:35] LABS: AMPHET/METH SCREEN,URINE NEGATIVE (NEGATIVE); BARBITURATE SCREEN, URINE NEGATIVE (NEGATIVE); BENZODIAZEPINES SCREEN,URINE NEGATIVE (NEGATIVE); CANNABINOID SCREEN,URINE NEGATIVE (NEGATIVE); COCAINE SCREEN,URINE NEGATIVE (NEGATIVE); METHADONE SCREEN, URINE NEGATIVE (NEGATIVE); OPIATE SCREEN,URINE NEGATIVE (NEGATIVE); PHENCYCLIDINE SCREEN,URINE NEGATIVE (NEGATIVE)
[2023-09-10 21:36] LABS: ALCOHOL, URINE DRUG SCREEN NEGATIVE (NEGATIVE)
[2023-09-10 21:50] LABS: BASOPHILS % (AUTO) 0.7 % (0.0-2.0); EOSINOPHILS % (AUTO) 1.4 % (1.0-6.0); HEMATOCRIT 35.9 % (41-53); HEMOGLOBIN 11.7 g/dL (13.5-17.5); LYMPHOCYTES % (AUTO) 26.3 % (22.0-44.0); MEAN CORPUSCULAR HEMOGLOBIN 28.3 pg (26.0-34.0); MEAN CORPUSCULAR HGB CONC 32.7 G/dL (31.0-37.0); MEAN CORPUSCULAR VOLUME 87 fL (80-100); MONOCYTES # (AUTO) 0.3 K/uL (0.1-1.0); MONOCYTES % (AUTO) 7.5 % (2.0-9.0); NEUTROPHILS # (AUTO) 2.6 K/uL (1.8-7.7); NEUTROPHILS % (AUTO) 64.1 % (40.0-70.0); PLATELET COUNT (AUTO) 167 K/uL (150-450); RED BLOOD CELL COUNT(AUTO) 4.14 MIL/uL (4.50-5.90); RED CELL DISTRIBUTION WIDTH 15.5 % (11.5-14.5)
[2023-09-10 22:06] LABS: ALCOHOL, BLOOD (SERUM) < 3 mg/dL (0-10)
[2023-09-10 22:09] LABS: ANION GAP 9 mmol/L (8-16); CALCIUM, TOTAL 8.2 mg/dL (8.8-10.5); CARBON DIOXIDE 26 mmol/L (22-29); CHLORIDE 105 mmol/L (98-107); GLOMERULAR FILTR. RATE CALC > 60 mL/min (>60); GLUCOSE,RANDOM 123 mg/dL (70-110); POTASSIUM 3.9 mmol/L (3.5-5.1); SODIUM SERUM 140 mmol/L (136-145); UREA NITROGEN, BLOOD 15 mg/dL (7-18)
[2023-09-10 22:15] LABS: ALANINE AMINOTRANSFERASE 18 U/L (12-78); ALBUMIN 3.4 g/dL (3.4-5.0); ALKALINE PHOSPHATASE 70 U/L (46-116); ASPARTATE AMINOTRANSFERASE 15 U/L (15-37); BILIRUBIN,TOTAL 0.2 mg/dL (0.1-1.0); CARBAMAZEPINE (TEGRETOL) 4.4 mcg/mL (4.0-12.0); PHENYTOIN (DILANTIN) 0.8 mcg/mL (10.0-20.0); TOTAL PROTEIN, SERUM 6.9 g/dL (6.4-8.2)
[2023-09-10 22:17] LABS: TROPONIN I-HIGH SENSITIVITY 4 ng/L (<76)
[2023-09-10] MEDS ORDERED: LevETIRAcetam 1,000 MG in DEXTROSE 5%-WATER 100 ML IV ONE (22:30)
[2023-09-11] MEDS ORDERED: ACETAMINOPHEN 500 MG TABLET PO ONE
[2023-09-11 00:49] VITALS: BP 97/63; PULSE 82; RESP 16
== END 2023-09-11 02:37 | disposition home or self-care (01) ==
LOC: EMS 20:11
DX: R56.9 Unspecified convulsions (principal)
CPT/HCPCS: 99285; 96365; 80053; 80156; 80185; 81003; 84484; 85025; 36415; 93005; 80307; 70450; 72125; J0712; J7060; G0480; G0482

== ENCOUNTER 2024-03-30 15:13 | Emergency (ER) | payer OTHER ==
[~2024-03-30] VITALS: Ht 170.2 cm; Wt 80.0 kg
[~2024-03-30 15:13] MED LIST changes: +RISP-32 PO; -RISP2TAB86 PO
[2024-03-30 17:05] LABS: COVID AG,FIA SOURCE NASAL SWAB
[2024-03-30 17:12] LABS: APPEARANCE,URINE CLEAR (CLEAR); BILIRUBIN,URINE NEGATIVE (NEGATIVE); COLOR,URINE LIGHT YELLOW (YELLOW); GLUCOSE, URINE (UA) NEGATIVE (NEGATIVE); KETONES,URINE NEGATIVE (NEGATIVE); LEUKOCYTE ESTERASE ,URINE NEGATIVE (NEGATIVE); NITRATE,URINE NEGATIVE (NEGATIVE); OCCULT BLOOD,URINE NEGATIVE (NEGATIVE); PH,URINE 5.5 (5.0-8.0); PH,URINE DRUG SCREEN 5.5 (5.0-8.0); PROTEIN,URINE NEGATIVE (NEGATIVE); UROBILINOGEN,URINE <=1.0 mg/dL (<=1.0)
[2024-03-30 17:18] LABS: ALCOHOL, URINE DRUG SCREEN NEGATIVE (NEGATIVE); AMPHET/METH SCREEN,URINE NEGATIVE (NEGATIVE); BARBITURATE SCREEN, URINE NEGATIVE (NEGATIVE); BASOPHILS % (AUTO) 0.6 % (0.0-2.0); BENZODIAZEPINES SCREEN,URINE NEGATIVE (NEGATIVE); CANNABINOID SCREEN,URINE POSITIVE (NEGATIVE); COCAINE SCREEN,URINE NEGATIVE (NEGATIVE); EOSINOPHILS % (AUTO) 3.4 % (1.0-6.0); HEMATOCRIT 36.5 % (41-53); HEMOGLOBIN 11.8 g/dL (13.5-17.5); LYMPHOCYTES # (AUTO) 1.7 K/uL (1.0-4.8); LYMPHOCYTES % (AUTO) 38.2 % (22.0-44.0); MEAN CORPUSCULAR HEMOGLOBIN 28.2 pg (26.0-34.0); MEAN CORPUSCULAR HGB CONC 32.3 G/dL (31.0-37.0); MEAN CORPUSCULAR VOLUME 87 fL (80-100); METHADONE SCREEN, URINE NEGATIVE (NEGATIVE); MONOCYTES # (AUTO) 0.4 K/uL (0.1-1.0); MONOCYTES % (AUTO) 8.7 % (2.0-9.0); NEUTROPHILS # (AUTO) 2.2 K/uL (1.8-7.7); NEUTROPHILS % (AUTO) 49.1 % (40.0-70.0); OPIATE SCREEN,URINE NEGATIVE (NEGATIVE); PHENCYCLIDINE SCREEN,URINE NEGATIVE (NEGATIVE); PLATELET COUNT (AUTO) 249 K/uL (150-450); RED BLOOD CELL COUNT(AUTO) 4.18 MIL/uL (4.50-5.90); RED CELL DISTRIBUTION WIDTH 14.8 % (11.5-14.5); WHITE BLOOD COUNT (AUTO) 4.4 K/uL (4.5-11.0)
[2024-03-30] MEDS: LevETIRAcetam 1,000 MG in DEXTROSE 5%-WATER 100 ML IV ONE (17:25)
[2024-03-30 17:29] LABS: ANION GAP 6 mmol/L (8-16); CALCIUM, TOTAL 8.4 mg/dL (8.8-10.5); CARBON DIOXIDE 27 mmol/L (22-29); CHLORIDE 105 mmol/L (98-107); CREATININE 0.86 mg/dL (0.60-1.30); GLOMERULAR FILTR. RATE CALC > 60 mL/min (>60); GLUCOSE,RANDOM 82 mg/dL (70-110); SODIUM SERUM 138 mmol/L (136-145); UREA NITROGEN, BLOOD 21 mg/dL (7-18)
[2024-03-30 17:41] LABS: B-TYPE NATRIURETIC PEPTIDE 14 pg/mL (0-100)
[2024-03-30 17:42] LABS: TROPONIN I-HIGH SENSITIVITY Less Than 4 ng/L (<76)
[2024-03-30 17:45] LABS: SARS-COV2 (COVID) ANTIGEN,FIA Negative (Negative)
[2024-03-30 17:53] LABS: ALANINE AMINOTRANSFERASE 20 U/L (12-78); ALBUMIN 3.3 g/dL (3.4-5.0); ALKALINE PHOSPHATASE 95 U/L (46-116); ASPARTATE AMINOTRANSFERASE 19 U/L (15-37); BILIRUBIN,TOTAL 0.1 mg/dL (0.1-1.0); CREATINE KINASE, TOTAL ONLY 121 U/L (39-308); TOTAL PROTEIN, SERUM 7.2 g/dL (6.4-8.2)
[2024-03-30] MEDS ORDERED: LEVE500T20 PO (18:00)
[2024-03-30 18:09] LABS: ALCOHOL, BLOOD (SERUM) < 3 mg/dL (0-10)
[2024-03-30 19:30] VITALS: BP 119/71; PULSE 78; RESP 16; TEMP 98.3
== END 2024-03-30 20:26 | disposition home or self-care (01) ==
LOC: EMS 15:13
DX: G40.909 Epilepsy, unspecified, not intractable, without status epilepticus (principal); Z20.822 Contact with and (suspected) exposure to COVID-19
CPT/HCPCS: 99285; 70450; 96365; 71045; 87426; 80053; 82550; 83880; 84484; 85025; 36415; 72125; 93005; 80307; 81003; J0712; G0480; J7060

== ENCOUNTER 2024-04-14 11:38 | Emergency (ER) | payer OTHER ==
[~2024-04-14] VITALS: Ht 170.2 cm; Wt 78.2 kg
[2024-04-14 11:43] VITALS: TEMP 98.3
[2024-04-14] MEDS: IBUPROFEN 600 MG TABLET PO ONE (13:04)
[2024-04-14] MEDS ORDERED: IBUP-1554 PO (13:39)
[2024-04-14 13:48] VITALS: BP 114/72; PULSE 66; RESP 16
== END 2024-04-14 14:11 | disposition home or self-care (01) ==
LOC: EMS 11:38
DX: S62.306A Unspecified fracture of fifth metacarpal bone, right hand, initial encounter for closed fracture (principal); W19.XXXA Unspecified fall, initial encounter; Y93.89 Activity, other specified; Y92.89 Other specified places as the place of occurrence of the external cause; Y99.8 Other external cause status
CPT/HCPCS: 99283

== ENCOUNTER 2024-07-01 13:00 | Emergency (ER) | payer OTHER ==
[~2024-07-01] VITALS: Ht 170.2 cm; Wt 65.9 kg
[~2024-07-01 13:00] MED LIST changes: +IBUP-1554 PO; +LEVE-71 PO; -LEVE500T20 PO
[2024-07-01 13:07] VITALS: TEMP 97.8
[2024-07-01] MEDS: LevETIRAcetam 1,000 MG in DEXTROSE 5%-WATER 100 ML IV ONE (13:23)
[2024-07-01 13:31] LABS: BASOPHILS % (AUTO) 0.9 % (0.0-2.0); EOSINOPHILS % (AUTO) 1.8 % (1.0-6.0); HEMATOCRIT 39.4 % (41-53); HEMOGLOBIN 12.6 g/dL (13.5-17.5); LYMPHOCYTES # (AUTO) 1.1 K/uL (1.0-4.8); LYMPHOCYTES % (AUTO) 21.6 % (22.0-44.0); MEAN CORPUSCULAR HEMOGLOBIN 27.9 pg (26.0-34.0); MEAN CORPUSCULAR HGB CONC 32.1 G/dL (31.0-37.0); MEAN CORPUSCULAR VOLUME 87 fL (80-100); MONOCYTES # (AUTO) 0.4 K/uL (0.1-1.0); MONOCYTES % (AUTO) 7.2 % (2.0-9.0); NEUTROPHILS # (AUTO) 3.6 K/uL (1.8-7.7); NEUTROPHILS % (AUTO) 68.5 % (40.0-70.0); PLATELET COUNT (AUTO) 214 K/uL (150-450); RED BLOOD CELL COUNT(AUTO) 4.54 MIL/uL (4.50-5.90); RED CELL DISTRIBUTION WIDTH 15.5 % (11.5-14.5); WHITE BLOOD COUNT (AUTO) 5.2 K/uL (4.5-11.0)
[2024-07-01 13:41] LABS: ANION GAP 7 mmol/L (8-16); CALCIUM, TOTAL 8.2 mg/dL (8.8-10.5); CARBON DIOXIDE 27 mmol/L (22-29); CHLORIDE 103 mmol/L (98-107); CREATININE 1.04 mg/dL (0.60-1.30); GLOMERULAR FILTR. RATE CALC > 60 mL/min (>60); GLUCOSE,RANDOM 114 mg/dL (70-110); POTASSIUM 3.9 mmol/L (3.5-5.1); SODIUM SERUM 137 mmol/L (136-145); UREA NITROGEN, BLOOD 9 mg/dL (7-18)
[2024-07-01 13:44] LABS: B-TYPE NATRIURETIC PEPTIDE 14 pg/mL (0-100)
[2024-07-01 13:50] LABS: TROPONIN I-HIGH SENSITIVITY Less Than 4 ng/L (<76)
[2024-07-01 14:06] LABS: ALANINE AMINOTRANSFERASE 19 U/L (12-78); ALBUMIN 3.2 g/dL (3.4-5.0); ALKALINE PHOSPHATASE 74 U/L (46-116); ASPARTATE AMINOTRANSFERASE 18 U/L (15-37); BILIRUBIN,TOTAL 0.4 mg/dL (0.1-1.0); CREATINE KINASE, TOTAL ONLY 135 U/L (39-308); TOTAL PROTEIN, SERUM 6.7 g/dL (6.4-8.2)
[2024-07-01 14:10] VITALS: BP 118/76; PULSE 88; RESP 18
[2024-07-01 14:55] LABS: ALCOHOL, BLOOD (SERUM) < 3 mg/dL (0-10)
[2024-07-01] MEDS: LevETIRAcetam 500 MG TABLET PO ONE (16:54)
[2024-07-01] MEDS: PHENYTOIN SODIUM 100 MG ER CAPSULE PO ONE (17:05)
[2024-07-01] MEDS ORDERED: LEVE-71 PO (17:05)
[2024-07-01] MEDS ORDERED: PHEN100C10 PO (17:05)
== END 2024-07-01 17:31 | disposition home or self-care (01) ==
LOC: EMS 13:00 → MERGE 13:00 → EMS 17:31
DX: G40.909 Epilepsy, unspecified, not intractable, without status epilepticus (principal); Z91.148 Patient's other noncompliance with medication regimen for other reason
CPT/HCPCS: 99291; 96365; 80053; 80185; 82550; 83880; 84484; 85025; 36415; 71045; 93005; J0712; G0480; J7060

== ENCOUNTER 2024-07-11 16:29 | Emergency (ER) | payer OTHER ==
[~2024-07-11] VITALS: Ht 167.6 cm; Wt 70.0 kg
[~2024-07-11 16:29] MED LIST changes: +PHEN100C10 PO
[2024-07-11 16:38] VITALS: TEMP 99.1
[2024-07-11] MEDS ORDERED: OXCA600T18 PO (16:41)
[2024-07-11] MEDS ORDERED: GABA-529 PO (16:41)
[2024-07-11 17:07] LABS: BASOPHILS % (AUTO) 0.6 % (0.0-2.0); EOSINOPHILS % (AUTO) 1.8 % (1.0-6.0); LYMPHOCYTES % (AUTO) 18.6 % (22.0-44.0); MEAN CORPUSCULAR HEMOGLOBIN 27.6 pg (26.0-34.0); MEAN CORPUSCULAR HGB CONC 31.8 G/dL (31.0-37.0); MEAN CORPUSCULAR VOLUME 87 fL (80-100); MONOCYTES # (AUTO) 0.3 K/uL (0.1-1.0); MONOCYTES % (AUTO) 5.5 % (2.0-9.0); NEUTROPHILS % (AUTO) 73.5 % (40.0-70.0); RED BLOOD CELL COUNT(AUTO) 4.72 MIL/uL (4.50-5.90); RED CELL DISTRIBUTION WIDTH 15.1 % (11.5-14.5); WHITE BLOOD COUNT (AUTO) 5.4 K/uL (4.5-11.0)
[2024-07-11 17:17] LABS: ANION GAP 12 mmol/L (8-16); CALCIUM, TOTAL 8.5 mg/dL (8.8-10.5); CARBON DIOXIDE 23 mmol/L (22-29); CHLORIDE 104 mmol/L (98-107); CREATININE 0.96 mg/dL (0.60-1.30); GLOMERULAR FILTR. RATE CALC > 60 mL/min (>60); GLUCOSE,RANDOM 102 mg/dL (70-110); SODIUM SERUM 139 mmol/L (136-145); UREA NITROGEN, BLOOD 6 mg/dL (7-18)
[2024-07-11 17:22] LABS: ALANINE AMINOTRANSFERASE 17 U/L (12-78); ALBUMIN 3.5 g/dL (3.4-5.0); ALKALINE PHOSPHATASE 77 U/L (46-116); ASPARTATE AMINOTRANSFERASE 21 U/L (15-37); BILIRUBIN,TOTAL 0.7 mg/dL (0.1-1.0); TOTAL PROTEIN, SERUM 7.4 g/dL (6.4-8.2)
[2024-07-11 17:26] LABS: ALCOHOL, BLOOD (SERUM) < 3 mg/dL (0-10)
[2024-07-11 17:27] LABS: PLATELET COUNT (AUTO) 152 K/uL (150-450)
[2024-07-11 18:24] LABS: ALCOHOL, URINE DRUG SCREEN NEGATIVE (NEGATIVE); AMPHET/METH SCREEN,URINE NEGATIVE (NEGATIVE); BARBITURATE SCREEN, URINE NEGATIVE (NEGATIVE); BENZODIAZEPINES SCREEN,URINE NEGATIVE (NEGATIVE); CANNABINOID SCREEN,URINE NEGATIVE (NEGATIVE); COCAINE SCREEN,URINE NEGATIVE (NEGATIVE); METHADONE SCREEN, URINE NEGATIVE (NEGATIVE); OPIATE SCREEN,URINE NEGATIVE (NEGATIVE); PHENCYCLIDINE SCREEN,URINE NEGATIVE (NEGATIVE)
[2024-07-11] MEDS: IBUPROFEN 600 MG TABLET PO ONE (18:56)
[2024-07-11 19:01] VITALS: BP 112/73; PULSE 80; RESP 16
== END 2024-07-11 19:12 | disposition home or self-care (01) ==
LOC: EMS 16:29
DX: R56.9 Unspecified convulsions (principal); Z87.891 Personal history of nicotine dependence
CPT/HCPCS: 99283; 80048; 80076; 80156; 85025; 36415; 80307; G0480

== ENCOUNTER 2024-08-30 19:23 | Emergency (ER) | payer OTHER ==
[~2024-08-30] VITALS: Ht 170.2 cm; Wt 82.0 kg
[~2024-08-30 19:23] MED LIST changes: -CARB-92 PO; -CARB200T6 PO; -DOCU-385 PO; -GABA-1216 PO; +GABA-529 PO; -IBUP-1554 PO; -LEVE750T10 PO; +OXCA600T18 PO; -PANT-31 PO; -PHEN100C23 PO; -PHEN50 PO; -RISP-32 PO
[2024-08-30 19:58] VITALS: TEMP 98.6
[2024-08-30 21:18] LABS: BASOPHILS % (AUTO) 0.5 % (0.0-2.0); EOSINOPHILS % (AUTO) 1.8 % (1.0-6.0); HEMATOCRIT 39.1 % (41-53); HEMOGLOBIN 12.6 g/dL (13.5-17.5); LYMPHOCYTES # (AUTO) 1.3 K/uL (1.0-4.8); LYMPHOCYTES % (AUTO) 23.9 % (22.0-44.0); MEAN CORPUSCULAR HEMOGLOBIN 27.9 pg (26.0-34.0); MEAN CORPUSCULAR HGB CONC 32.3 G/dL (31.0-37.0); MEAN CORPUSCULAR VOLUME 86 fL (80-100); MONOCYTES # (AUTO) 0.3 K/uL (0.1-1.0); MONOCYTES % (AUTO) 6.3 % (2.0-9.0); NEUTROPHILS # (AUTO) 3.6 K/uL (1.8-7.7); NEUTROPHILS % (AUTO) 67.5 % (40.0-70.0); PLATELET COUNT (AUTO) 139 K/uL (150-450); RED BLOOD CELL COUNT(AUTO) 4.53 MIL/uL (4.50-5.90); RED CELL DISTRIBUTION WIDTH 14.5 % (11.5-14.5); WHITE BLOOD COUNT (AUTO) 5.4 K/uL (4.5-11.0)
[2024-08-30 21:27] LABS: ALCOHOL, BLOOD (SERUM) < 3 mg/dL (0-10)
[2024-08-30 21:36] LABS: ANION GAP 13 mmol/L (8-16); CALCIUM, TOTAL 8.3 mg/dL (8.8-10.5); CARBON DIOXIDE 22 mmol/L (22-29); CHLORIDE 104 mmol/L (98-107); CREATININE 1.03 mg/dL (0.60-1.30); GLOMERULAR FILTR. RATE CALC > 60 mL/min (>60); GLUCOSE,RANDOM 115 mg/dL (70-110); POTASSIUM 3.4 mmol/L (3.5-5.1); SODIUM SERUM 139 mmol/L (136-145); UREA NITROGEN, BLOOD 6 mg/dL (7-18)
[2024-08-30 21:41] LABS: PHENYTOIN (DILANTIN) < 0.5 mcg/mL (10.0-20.0)
[2024-08-30] MEDS: PHENYTOIN SODIUM 100 MG ER CAPSULE PO ONE (23:27)
[2024-08-30] MEDS: RisperiDONE CONC 2 MG/2 ML SOLUTION ORAL.SYG PO ONE (23:28)
[2024-08-30] MEDS: LevETIRAcetam 750 MG in DEXTROSE 5%-WATER 100 ML IV ONE (23:30)
[2024-08-31] MEDS ORDERED: LEVE-71 PO (00:28)
[2024-08-31] MEDS ORDERED: PHEN100C10 PO (00:28)
[2024-08-31] MEDS ORDERED: GABA-529 PO (00:28)
[2024-08-31 00:36] VITALS: BP 126/60; PULSE 91; RESP 16; O2SAT 98
[2024-08-31 08:16] LABS: PH,URINE DRUG SCREEN 6.5 (5.0-8.0)
[2024-08-31 08:23] LABS: ALCOHOL, URINE DRUG SCREEN NEGATIVE (NEGATIVE); AMPHET/METH SCREEN,URINE NEGATIVE (NEGATIVE); BARBITURATE SCREEN, URINE NEGATIVE (NEGATIVE); BENZODIAZEPINES SCREEN,URINE NEGATIVE (NEGATIVE); CANNABINOID SCREEN,URINE NEGATIVE (NEGATIVE); COCAINE SCREEN,URINE NEGATIVE (NEGATIVE); METHADONE SCREEN, URINE NEGATIVE (NEGATIVE); OPIATE SCREEN,URINE NEGATIVE (NEGATIVE); PHENCYCLIDINE SCREEN,URINE NEGATIVE (NEGATIVE)
== END 2024-08-31 00:39 | disposition home or self-care (01) ==
LOC: EMS 19:23
DX: R56.9 Unspecified convulsions (principal); Z87.820 Personal history of traumatic brain injury; Z79.899 Other long term (current) drug therapy
CPT/HCPCS: 99284; 96365; 80048; 80185; 85025; 36415; 80307; J0712; G0480; J7060; 96375; 99285

== ENCOUNTER 2024-09-18 18:46 | Emergency (ER) | payer OTHER ==
[~2024-09-18] VITALS: Ht 165.1 cm; Wt 72.7 kg
[2024-09-18 19:24] VITALS: TEMP 98.7
[2024-09-18 20:16] LABS: EOSINOPHILS % (AUTO) 1.8 % (1.0-6.0); HEMATOCRIT 39.6 % (41-53); HEMOGLOBIN 12.9 g/dL (13.5-17.5); LYMPHOCYTES # (AUTO) 1.3 K/uL (1.0-4.8); LYMPHOCYTES % (AUTO) 23.5 % (22.0-44.0); MEAN CORPUSCULAR HEMOGLOBIN 27.8 pg (26.0-34.0); MEAN CORPUSCULAR HGB CONC 32.5 G/dL (31.0-37.0); MEAN CORPUSCULAR VOLUME 85 fL (80-100); MONOCYTES # (AUTO) 0.4 K/uL (0.1-1.0); NEUTROPHILS # (AUTO) 3.6 K/uL (1.8-7.7); NEUTROPHILS % (AUTO) 66.7 % (40.0-70.0); PLATELET COUNT (AUTO) 248 K/uL (150-450); RED BLOOD CELL COUNT(AUTO) 4.64 MIL/uL (4.50-5.90); RED CELL DISTRIBUTION WIDTH 14.1 % (11.5-14.5); WHITE BLOOD COUNT (AUTO) 5.4 K/uL (4.5-11.0)
[2024-09-18 20:22] LABS: ANION GAP 12 mmol/L (8-16); CALCIUM, TOTAL 8.1 mg/dL (8.8-10.5); CARBON DIOXIDE 21 mmol/L (22-29); CHLORIDE 100 mmol/L (98-107); CREATININE 0.98 mg/dL (0.60-1.30); GLOMERULAR FILTR. RATE CALC > 60 mL/min (>60); GLUCOSE,RANDOM 93 mg/dL (70-110); POTASSIUM 3.8 mmol/L (3.5-5.1); SODIUM SERUM 133 mmol/L (136-145); UREA NITROGEN, BLOOD 5 mg/dL (7-18)
[2024-09-18 20:26] LABS: PHENYTOIN (DILANTIN) < 0.5 mcg/mL (10.0-20.0)
[2024-09-18] MEDS: LevETIRAcetam 1,500 MG in DEXTROSE 5%-WATER 100 ML IV ONE (20:35)
[2024-09-18 20:45] LABS: TROPONIN I-HIGH SENSITIVITY 4 ng/L (<76)
[2024-09-18 20:46] LABS: B-TYPE NATRIURETIC PEPTIDE 15 pg/mL (0-100)
[2024-09-18 21:24] VITALS: BP 113/64; PULSE 59; RESP 16; O2SAT 97
== END 2024-09-18 22:06 | disposition home or self-care (01) ==
LOC: EMS 18:46
DX: G40.909 Epilepsy, unspecified, not intractable, without status epilepticus (principal); F17.210 Nicotine dependence, cigarettes, uncomplicated; Z87.820 Personal history of traumatic brain injury; Z79.899 Other long term (current) drug therapy
CPT/HCPCS: 99284; 96365; 80048; 80185; 83880; 84484; 85025; 36415; 93005; J0712; J7060

== ENCOUNTER 2024-12-28 12:29 | Emergency (ER) | payer OTHER ==
[~2024-12-28] VITALS: Ht 165.1 cm; Wt 72.7 kg
[~2024-12-28 12:29] MED LIST changes: -PHEN100C10 PO; +PHEN100C74 PO
[2024-12-28 12:46] VITALS: TEMP 98.2
[2024-12-28 15:17] VITALS: BP 118/70; PULSE 74; RESP 16; O2SAT 98
[2024-12-28] MEDS: ACETAMINOPHEN 325 MG TABLET PO ONE (15:34)
[2024-12-28] MEDS: LevETIRAcetam 500 MG TABLET PO ONE (15:34)
[2024-12-28 15:52] LABS: BASOPHILS % (AUTO) 0.6 % (0.0-2.0); EOSINOPHILS % (AUTO) 0.3 % (1.0-6.0); HEMATOCRIT 39.9 % (41-53); HEMOGLOBIN 12.9 g/dL (13.5-17.5); LYMPHOCYTES # (AUTO) 0.8 K/uL (1.0-4.8); LYMPHOCYTES % (AUTO) 9.5 % (22.0-44.0); MEAN CORPUSCULAR HEMOGLOBIN 27.4 pg (26.0-34.0); MEAN CORPUSCULAR HGB CONC 32.3 G/dL (31.0-37.0); MEAN CORPUSCULAR VOLUME 85 fL (80-100); MONOCYTES # (AUTO) 0.4 K/uL (0.1-1.0); MONOCYTES % (AUTO) 4.3 % (2.0-9.0); NEUTROPHILS # (AUTO) 7.3 K/uL (1.8-7.7); PLATELET COUNT (AUTO) 226 K/uL (150-450); RED BLOOD CELL COUNT(AUTO) 4.71 MIL/uL (4.50-5.90); RED CELL DISTRIBUTION WIDTH 14.5 % (11.5-14.5); WHITE BLOOD COUNT (AUTO) 8.5 K/uL (4.5-11.0)
[2024-12-28 15:55] LABS: NEUTROPHILS % (AUTO) 85.3 % (40.0-70.0)
[2024-12-28 16:01] LABS: ANION GAP 8 mmol/L (8-16); CALCIUM, TOTAL 8.4 mg/dL (8.8-10.5); CARBON DIOXIDE 22 mmol/L (22-29); CHLORIDE 103 mmol/L (98-107); CREATININE 0.97 mg/dL (0.60-1.30); GLOMERULAR FILTR. RATE CALC > 60 mL/min (>60); GLUCOSE,RANDOM 105 mg/dL (70-110); SODIUM SERUM 133 mmol/L (136-145); UREA NITROGEN, BLOOD 3 mg/dL (7-18)
[2024-12-28 16:24] LABS: ALCOHOL, BLOOD (SERUM) < 3 mg/dL (0-10)
== END 2024-12-28 21:36 | disposition home or self-care (01) ==
LOC: EMS 12:29
DX: G40.909 Epilepsy, unspecified, not intractable, without status epilepticus (principal); F10.20 Alcohol dependence, uncomplicated; F17.210 Nicotine dependence, cigarettes, uncomplicated; F14.90 Cocaine use, unspecified, uncomplicated; Z79.899 Other long term (current) drug therapy; Z87.820 Personal history of traumatic brain injury
CPT/HCPCS: 99283; 80048; 83735; 85025; 36415; G0480

== ENCOUNTER 2025-01-04 18:18 | Inpatient (IN) | payer OTHER ==
[~2025-01-04] VITALS: Ht 165.1 cm; Wt 82.2 kg
[2025-01-04] MEDS ORDERED: PHEN100C74 PO (18:38)
[2025-01-04 19:01] LABS: BASOPHILS % (AUTO) 0.6 % (0.0-2.0); EOSINOPHILS % (AUTO) 4.9 % (1.0-6.0); HEMATOCRIT 39.9 % (41-53); HEMOGLOBIN 12.9 g/dL (13.5-17.5); LYMPHOCYTES # (AUTO) 1.1 K/uL (1.0-4.8); LYMPHOCYTES % (AUTO) 17.1 % (22.0-44.0); MEAN CORPUSCULAR HEMOGLOBIN 27.6 pg (26.0-34.0); MEAN CORPUSCULAR HGB CONC 32.4 G/dL (31.0-37.0); MEAN CORPUSCULAR VOLUME 85 fL (80-100); MONOCYTES # (AUTO) 0.3 K/uL (0.1-1.0); MONOCYTES % (AUTO) 4.9 % (2.0-9.0); NEUTROPHILS # (AUTO) 4.6 K/uL (1.8-7.7); NEUTROPHILS % (AUTO) 72.5 % (40.0-70.0); PLATELET COUNT (AUTO) 217 K/uL (150-450); RED BLOOD CELL COUNT(AUTO) 4.69 MIL/uL (4.50-5.90); RED CELL DISTRIBUTION WIDTH 14.7 % (11.5-14.5); WHITE BLOOD COUNT (AUTO) 6.3 K/uL (4.5-11.0)
[2025-01-04 19:12] LABS: ANION GAP 8 mmol/L (8-16); CALCIUM, TOTAL 8.5 mg/dL (8.8-10.5); CARBON DIOXIDE 27 mmol/L (22-29); CHLORIDE 101 mmol/L (98-107); CREATININE 1.09 mg/dL (0.60-1.30); GLOMERULAR FILTR. RATE CALC > 60 mL/min (>60); GLUCOSE,RANDOM 96 mg/dL (70-110); POTASSIUM 3.8 mmol/L (3.5-5.1); SODIUM SERUM 136 mmol/L (136-145); UREA NITROGEN, BLOOD 6 mg/dL (7-18)
[2025-01-04 19:16] LABS: ALCOHOL, BLOOD (SERUM) < 3 mg/dL (0-10)
[2025-01-04 19:19] LABS: B-TYPE NATRIURETIC PEPTIDE 23 pg/mL (0-100)
[2025-01-04] MEDS: LevETIRAcetam 1,000 MG in DEXTROSE 5%-WATER 100 ML IV ONE (19:19)
[2025-01-04 19:21] LABS: ALANINE AMINOTRANSFERASE 26 U/L (12-78); ALBUMIN 3.6 g/dL (3.4-5.0); ALKALINE PHOSPHATASE 80 U/L (46-116); ASPARTATE AMINOTRANSFERASE 24 U/L (15-37); BILIRUBIN,TOTAL 0.4 mg/dL (0.1-1.0); CREATINE KINASE, TOTAL ONLY 344 U/L (39-308); TOTAL PROTEIN, SERUM 7.2 g/dL (6.4-8.2); TROPONIN I-HIGH SENSITIVITY 5 ng/L (<76)
[2025-01-04] MEDS ORDERED: LEVE-71 PO (20:39)
[2025-01-04] MEDS: DOCUSATE SODIUM 100 MG CAPSULE PO SCH (20:45)
[2025-01-04] MEDS: LevETIRAcetam 500 MG TABLET PO SCH (20:55)
[2025-01-04] MEDS: GABAPENTIN 100 MG CAPSULE PO SCH (20:56)
[2025-01-04] MEDS: PHENYTOIN SODIUM 100 MG ER CAPSULE PO SCH (20:56)
[2025-01-04 20:57] LABS: APPEARANCE,URINE CLEAR (CLEAR); BILIRUBIN,URINE NEGATIVE (NEGATIVE); COLOR,URINE COLORLESS (YELLOW); GLUCOSE, URINE (UA) NEGATIVE (NEGATIVE); KETONES,URINE NEGATIVE (NEGATIVE); LEUKOCYTE ESTERASE ,URINE NEGATIVE (NEGATIVE); NITRATE,URINE NEGATIVE (NEGATIVE); OCCULT BLOOD,URINE NEGATIVE (NEGATIVE); PH,URINE 5.5 (5.0-8.0); PH,URINE DRUG SCREEN 5.5 (5.0-8.0); PROTEIN,URINE NEGATIVE (NEGATIVE); SPECIFIC GRAVITIY, URINE 1.003 (1.003-1.030); UROBILINOGEN,URINE <=1.0 mg/dL (<=1.0)
[2025-01-04 21:04] LABS: AMPHET/METH SCREEN,URINE NEGATIVE (NEGATIVE); BARBITURATE SCREEN, URINE NEGATIVE (NEGATIVE); BENZODIAZEPINES SCREEN,URINE NEGATIVE (NEGATIVE); CANNABINOID SCREEN,URINE NEGATIVE (NEGATIVE); COCAINE SCREEN,URINE NEGATIVE (NEGATIVE); METHADONE SCREEN, URINE NEGATIVE (NEGATIVE); OPIATE SCREEN,URINE NEGATIVE (NEGATIVE); PHENCYCLIDINE SCREEN,URINE NEGATIVE (NEGATIVE)
[2025-01-04 21:05] LABS: ALCOHOL, URINE DRUG SCREEN NEGATIVE (NEGATIVE)
[2025-01-04 22:00] VITALS: BP 125/77; PULSE 73; RESP 18; TEMP 97.6; O2SAT 96
[2025-01-04] MEDS ORDERED: LORazepam 2 MG TABLET PO PRN (22:45)
[2025-01-04 23:15] VITALS: BP 99/68; PULSE 63; RESP 18; TEMP 97.9; O2SAT 97
[2025-01-04] MEDS: 1: MAGNESIUM SULFATE 2 GM, MVI, ADULT NO.1 WITH VIT K 10 ML, THIAMINE 100 MG, FOLIC ACID IV SCH (23:52)
[2025-01-04] MEDS: HEPARIN SODIUM,PORCINE 5,000 UNITS/ML VIAL SQ SCH (23:54)
[2025-01-05] VITALS (7 sets, daily range): BP systolic 93–109; BP diastolic 58–75; PULSE 66–92; RESP 14–18; TEMP 97.2–98.2; O2SAT 95–99
[2025-01-05] MEDS: ACETAMINOPHEN 325 MG TABLET PO PRN (05:56)
[2025-01-05] MEDS ORDERED: LORazepam 2 MG TABLET PO PRN (07:00)
[2025-01-05 07:56] LABS: ANION GAP 7 mmol/L (8-16); CALCIUM, TOTAL 8.4 mg/dL (8.8-10.5); CARBON DIOXIDE 25 mmol/L (22-29); CHLORIDE 109 mmol/L (98-107); CREATININE 0.95 mg/dL (0.60-1.30); GLOMERULAR FILTR. RATE CALC > 60 mL/min (>60); GLUCOSE,RANDOM 81 mg/dL (70-110); POTASSIUM 3.9 mmol/L (3.5-5.1); SODIUM SERUM 141 mmol/L (136-145); UREA NITROGEN, BLOOD 5 mg/dL (7-18)
[2025-01-05] MEDS ORDERED: SODIUM CHLORIDE 0.9% 1,000 ML ONE (08:03)
[2025-01-05] MEDS: LORazepam 2 MG TABLET PO SCH (08:11)
[2025-01-05 08:14] LABS: BASOPHILS % (AUTO) 1.1 % (0.0-2.0); EOSINOPHILS % (AUTO) 7.3 % (1.0-6.0); HEMATOCRIT 40.5 % (41-53); HEMOGLOBIN 12.9 g/dL (13.5-17.5); LYMPHOCYTES # (AUTO) 1.4 K/uL (1.0-4.8); MEAN CORPUSCULAR HEMOGLOBIN 27.2 pg (26.0-34.0); MEAN CORPUSCULAR HGB CONC 31.9 G/dL (31.0-37.0); MEAN CORPUSCULAR VOLUME 85 fL (80-100); MONOCYTES # (AUTO) 0.3 K/uL (0.1-1.0); MONOCYTES % (AUTO) 5.9 % (2.0-9.0); NEUTROPHILS # (AUTO) 3.3 K/uL (1.8-7.7); NEUTROPHILS % (AUTO) 59.7 % (40.0-70.0); RED BLOOD CELL COUNT(AUTO) 4.74 MIL/uL (4.50-5.90); RED CELL DISTRIBUTION WIDTH 14.8 % (11.5-14.5); WHITE BLOOD COUNT (AUTO) 5.4 K/uL (4.5-11.0)
[2025-01-05 08:27] LABS: PLATELET COUNT (AUTO) 207 K/uL (150-450)
[2025-01-05] MEDS ORDERED: LORazepam 2 MG/ML VIAL IVP PRN (11:30)
[2025-01-06 00:05] VITALS: BP 123/61; PULSE 83; RESP 18; TEMP 97.6; O2SAT 98
[2025-01-06 04:18] VITALS: BP 100/65; PULSE 58; RESP 16; TEMP 97.3; O2SAT 96
[2025-01-06 06:06] LABS: BASOPHILS % (AUTO) 0.8 % (0.0-2.0); EOSINOPHILS % (AUTO) 6.7 % (1.0-6.0); HEMATOCRIT 39.8 % (41-53); LYMPHOCYTES # (AUTO) 1.3 K/uL (1.0-4.8); MEAN CORPUSCULAR HEMOGLOBIN 27.8 pg (26.0-34.0); MEAN CORPUSCULAR HGB CONC 32.6 G/dL (31.0-37.0); MEAN CORPUSCULAR VOLUME 85 fL (80-100); MONOCYTES # (AUTO) 0.3 K/uL (0.1-1.0); NEUTROPHILS # (AUTO) 2.3 K/uL (1.8-7.7); NEUTROPHILS % (AUTO) 55.5 % (40.0-70.0); PLATELET COUNT (AUTO) 194 K/uL (150-450); RED BLOOD CELL COUNT(AUTO) 4.68 MIL/uL (4.50-5.90); RED CELL DISTRIBUTION WIDTH 14.7 % (11.5-14.5); WHITE BLOOD COUNT (AUTO) 4.2 K/uL (4.5-11.0)
[2025-01-06 06:13] LABS: ANION GAP 8 mmol/L (8-16); CALCIUM, TOTAL 8.5 mg/dL (8.8-10.5); CARBON DIOXIDE 24 mmol/L (22-29); CHLORIDE 108 mmol/L (98-107); CREATININE 1.01 mg/dL (0.60-1.30); GLOMERULAR FILTR. RATE CALC > 60 mL/min (>60); GLUCOSE,RANDOM 87 mg/dL (70-110); POTASSIUM 3.9 mmol/L (3.5-5.1); SODIUM SERUM 140 mmol/L (136-145); UREA NITROGEN, BLOOD 8 mg/dL (7-18)
[2025-01-06 07:45] VITALS: BP 108/74; PULSE 73; RESP 18; TEMP 98.3; O2SAT 95
[2025-01-06 08:00] VITALS: BP 108/74; PULSE 73; RESP 18; TEMP 98.3; O2SAT 95
[2025-01-06 11:19] VITALS: BP 98/69; PULSE 68; RESP 19; TEMP 98.1; O2SAT 96
[2025-01-06 15:19] VITALS: BP 110/74; PULSE 72; RESP 18; TEMP 98; O2SAT 97
[2025-01-07] MEDS ORDERED: LORazepam 1 MG TABLET PO PRN (07:00)
[2025-01-07] MEDS ORDERED: LORazepam 1 MG TABLET PO SCH (09:00)
[2025-01-08] MEDS ORDERED: LORazepam 1 MG TABLET PO PRN (07:00)
== END 2025-01-06 16:25 | disposition home or self-care (01) | DRG 53 ==
LOC: EMS 18:18 → EDH 20:50 → 5S 22:18
PROVIDERS: ADMIT Internal Medicine; ATTEND Internal Medicine
DX: G40.409 Other generalized epilepsy and epileptic syndromes, not intractable, without status epilepticus (principal); E51.2 Wernicke's encephalopathy; F14.90 Cocaine use, unspecified, uncomplicated; D64.9 Anemia, unspecified; E66.9 Obesity, unspecified; F10.239 Alcohol dependence with withdrawal, unspecified; F11.10 Opioid abuse, uncomplicated; Z87.820 Personal history of traumatic brain injury; Z87.891 Personal history of nicotine dependence; Z91.148 Patient's other noncompliance with medication regimen for other reason; Z68.30 Body mass index [BMI] 30.0-30.9, adult; Y90.9 Presence of alcohol in blood, level not specified
CPT/HCPCS: 70450; 71045; 72125; 80048; 80076; 80307; 81003; 82550; 83735; 83880; 84484; 85025; 93005; 96365; 99285; G0480; J0712; J1644; J3411; J3475; J3490; J7030; J7060; 36415-L1; 36415-TC

== ENCOUNTER 2025-03-07 14:37 | Inpatient (IN) | payer OTHER ==
[~2025-03-07] VITALS: Ht 172.7 cm; Wt 81.2 kg
[~2025-03-07 14:37] MED LIST changes: -OXCA600T18 PO
[2025-03-07] MEDS: BACITRACIN 0.9 GM PACKET OINTMENT TP ONE (15:12)
[2025-03-07] MEDS: PERTUSS(ACELL),DIPH,TET/PF 0.5 ML SYRINGE [ADULT] IM. ONE (15:12)
[2025-03-07 15:26] LABS: BASOPHILS % (AUTO) 0.7 % (0.0-2.0); EOSINOPHILS % (AUTO) 12.1 % (1.0-6.0); HEMATOCRIT 39.6 % (41-53); HEMOGLOBIN 12.7 g/dL (13.5-17.5); LYMPHOCYTES % (AUTO) 14.6 % (22.0-44.0); MEAN CORPUSCULAR HEMOGLOBIN 27.5 pg (26.0-34.0); MEAN CORPUSCULAR HGB CONC 32.1 G/dL (31.0-37.0); MEAN CORPUSCULAR VOLUME 86 fL (80-100); MONOCYTES # (AUTO) 0.4 K/uL (0.1-1.0); MONOCYTES % (AUTO) 6.2 % (2.0-9.0); NEUTROPHILS # (AUTO) 4.6 K/uL (1.8-7.7); NEUTROPHILS % (AUTO) 66.4 % (40.0-70.0); PLATELET COUNT (AUTO) 204 K/uL (150-450); RED BLOOD CELL COUNT(AUTO) 4.61 MIL/uL (4.50-5.90); RED CELL DISTRIBUTION WIDTH 15.6 % (11.5-14.5); WHITE BLOOD COUNT (AUTO) 6.9 K/uL (4.5-11.0)
[2025-03-07] MEDS: LevETIRAcetam 1,000 MG in DEXTROSE 5%-WATER 100 ML IV ONE (15:26)
[2025-03-07 15:38] LABS: ANION GAP 9 mmol/L (8-16); CALCIUM, TOTAL 8.4 mg/dL (8.8-10.5); CARBON DIOXIDE 22 mmol/L (22-29); CHLORIDE 100 mmol/L (98-107); CREATININE 0.83 mg/dL (0.60-1.30); GLOMERULAR FILTR. RATE CALC > 60 mL/min (>60); GLUCOSE,RANDOM 103 mg/dL (70-110); POTASSIUM 3.4 mmol/L (3.5-5.1); SODIUM SERUM 131 mmol/L (136-145); UREA NITROGEN, BLOOD 7 mg/dL (7-18)
[2025-03-07 15:39] LABS: B-TYPE NATRIURETIC PEPTIDE 14 pg/mL (0-100)
[2025-03-07 15:41] LABS: ALCOHOL, BLOOD (SERUM) < 3 mg/dL (0-10)
[2025-03-07 15:42] LABS: ALBUMIN 3.3 g/dL (3.4-5.0); BILIRUBIN,DIRECT 0.1 mg/dL (0.00-0.20); BILIRUBIN,TOTAL 0.4 mg/dL (0.1-1.0); TOTAL PROTEIN, SERUM 6.8 g/dL (6.4-8.2)
[2025-03-07 15:48] LABS: CREATINE KINASE, TOTAL ONLY 244 U/L (39-308); TROPONIN I-HIGH SENSITIVITY 4 ng/L (<76)
[2025-03-07 16:05] LABS: APPEARANCE,URINE CLEAR (CLEAR); BILIRUBIN,URINE NEGATIVE (NEGATIVE); COLOR,URINE COLORLESS (YELLOW); GLUCOSE, URINE (UA) NEGATIVE (NEGATIVE); KETONES,URINE NEGATIVE (NEGATIVE); LEUKOCYTE ESTERASE ,URINE NEGATIVE (NEGATIVE); NITRATE,URINE NEGATIVE (NEGATIVE); OCCULT BLOOD,URINE NEGATIVE (NEGATIVE); PH,URINE 5.5 (5.0-8.0); PH,URINE DRUG SCREEN 5.5 (5.0-8.0); PROTEIN,URINE NEGATIVE (NEGATIVE); SPECIFIC GRAVITIY, URINE 1.006 (1.003-1.030); UROBILINOGEN,URINE <=1.0 mg/dL (<=1.0)
[2025-03-07 16:10] LABS: AMPHET/METH SCREEN,URINE NEGATIVE (NEGATIVE); BARBITURATE SCREEN, URINE NEGATIVE (NEGATIVE); BENZODIAZEPINES SCREEN,URINE NEGATIVE (NEGATIVE); CANNABINOID SCREEN,URINE NEGATIVE (NEGATIVE); COCAINE SCREEN,URINE NEGATIVE (NEGATIVE); METHADONE SCREEN, URINE NEGATIVE (NEGATIVE); OPIATE SCREEN,URINE NEGATIVE (NEGATIVE); PHENCYCLIDINE SCREEN,URINE NEGATIVE (NEGATIVE)
[2025-03-07 16:11] LABS: ALCOHOL, URINE DRUG SCREEN NEGATIVE (NEGATIVE)
[2025-03-07] MEDS ORDERED: ONDANSETRON HCL 4 MG/2 ML VIAL IVP PRN (20:00)
[2025-03-07] MEDS: DOCUSATE SODIUM 100 MG CAPSULE PO SCH (20:16)
[2025-03-07] MEDS: ACETAMINOPHEN 325 MG TABLET PO PRN (22:12)
[2025-03-07] MEDS: HEPARIN SODIUM,PORCINE 5,000 UNITS/ML VIAL SQ SCH (23:19)
[2025-03-07] MEDS: LevETIRAcetam 500 MG TABLET PO SCH (23:19)
[2025-03-07] MEDS: PHENYTOIN SODIUM 300 MG in SODIUM CHLORIDE 0.9% 100 ML IV ONE (23:20)
[2025-03-07] MEDS ORDERED: LORazepam 2 MG TABLET PO PRN (23:45)
[2025-03-08] MEDS ORDERED: LORazepam 2 MG TABLET PO PRN (07:00)
[2025-03-08 07:04] LABS: BASOPHILS % (AUTO) 0.7 % (0.0-2.0); EOSINOPHILS % (AUTO) 8.1 % (1.0-6.0); HEMATOCRIT 41.4 % (41-53); HEMOGLOBIN 13.5 g/dL (13.5-17.5); LYMPHOCYTES % (AUTO) 10.7 % (22.0-44.0); MEAN CORPUSCULAR HEMOGLOBIN 27.7 pg (26.0-34.0); MEAN CORPUSCULAR HGB CONC 32.5 G/dL (31.0-37.0); MEAN CORPUSCULAR VOLUME 85 fL (80-100); MONOCYTES # (AUTO) 0.5 K/uL (0.1-1.0); MONOCYTES % (AUTO) 5.6 % (2.0-9.0); NEUTROPHILS # (AUTO) 6.8 K/uL (1.8-7.7); NEUTROPHILS % (AUTO) 74.9 % (40.0-70.0); PLATELET COUNT (AUTO) 220 K/uL (150-450); RED BLOOD CELL COUNT(AUTO) 4.85 MIL/uL (4.50-5.90); RED CELL DISTRIBUTION WIDTH 15.5 % (11.5-14.5); WHITE BLOOD COUNT (AUTO) 9.1 K/uL (4.5-11.0)
[2025-03-08 07:18] LABS: ANION GAP 7 mmol/L (8-16); CARBON DIOXIDE 25 mmol/L (22-29); CHLORIDE 106 mmol/L (98-107); CREATININE 0.89 mg/dL (0.60-1.30); GLOMERULAR FILTR. RATE CALC > 60 mL/min (>60); GLUCOSE,RANDOM 90 mg/dL (70-110); POTASSIUM 3.9 mmol/L (3.5-5.1); SODIUM SERUM 138 mmol/L (136-145); UREA NITROGEN, BLOOD 8 mg/dL (7-18)
[2025-03-08] MEDS: LORazepam 2 MG TABLET PO SCH (08:31)
[2025-03-08] MEDS: GABAPENTIN 100 MG CAPSULE PO SCH (08:32)
[2025-03-08] MEDS: PHENYTOIN SODIUM 100 MG ER CAPSULE PO SCH (08:32)
[2025-03-08 09:34] VITALS: BP 102/64; PULSE 80; RESP 18; TEMP 98; O2SAT 92
[2025-03-08] MEDS ORDERED: LORazepam 2 MG/ML VIAL IVP PRN (11:00)
[2025-03-08 11:14] VITALS: BP 92/67; PULSE 77; RESP 18; TEMP 97; O2SAT 94
[2025-03-08] MEDS: MULTIVITAMINS WITH MINERALS, THERAPEUTIC TABLET PO SCH (11:48)
[2025-03-08 15:40] VITALS: BP 110/76; PULSE 95; RESP 18; TEMP 97.9; O2SAT 96
[2025-03-08 20:16] VITALS: BP 110/74; PULSE 76; RESP 17; TEMP 98.6; O2SAT 98
[2025-03-08 23:50] VITALS: BP 99/76; PULSE 74; RESP 19; TEMP 98.1; O2SAT 99
[2025-03-09 04:41] VITALS: BP 114/83; PULSE 101; RESP 19; TEMP 97.5; O2SAT 94
[2025-03-09 07:18] LABS: ANION GAP 10 mmol/L (8-16); CARBON DIOXIDE 23 mmol/L (22-29); CHLORIDE 106 mmol/L (98-107); CREATININE 0.92 mg/dL (0.60-1.30); GLOMERULAR FILTR. RATE CALC > 60 mL/min (>60); GLUCOSE,RANDOM 88 mg/dL (70-110); POTASSIUM 4.1 mmol/L (3.5-5.1); SODIUM SERUM 139 mmol/L (136-145); UREA NITROGEN, BLOOD 14 mg/dL (7-18)
[2025-03-09 07:23] LABS: EOSINOPHILS % (AUTO) 11.1 % (1.0-6.0); HEMATOCRIT 40.7 % (41-53); HEMOGLOBIN 13.2 g/dL (13.5-17.5); LYMPHOCYTES % (AUTO) 17.1 % (22.0-44.0); MEAN CORPUSCULAR HEMOGLOBIN 27.8 pg (26.0-34.0); MEAN CORPUSCULAR HGB CONC 32.4 G/dL (31.0-37.0); MEAN CORPUSCULAR VOLUME 86 fL (80-100); MONOCYTES % (AUTO) 7.2 % (2.0-9.0); NEUTROPHILS % (AUTO) 63.9 % (40.0-70.0); PLATELET COUNT (AUTO) 224 K/uL (150-450); RED BLOOD CELL COUNT(AUTO) 4.76 MIL/uL (4.50-5.90); RED CELL DISTRIBUTION WIDTH 15.3 % (11.5-14.5)
[2025-03-09 07:24] LABS: BASOPHILS % (AUTO) 0.7 % (0.0-2.0); LYMPHOCYTES # (AUTO) 1.4 K/uL (1.0-4.8); MONOCYTES # (AUTO) 0.6 K/uL (0.1-1.0); NEUTROPHILS # (AUTO) 5.1 K/uL (1.8-7.7)
[2025-03-09 07:58] VITALS: BP 98/64; PULSE 65; RESP 19; TEMP 98; O2SAT 98
[2025-03-09 11:54] VITALS: BP 99/72; PULSE 67; RESP 19; TEMP 97.5; O2SAT 97
[2025-03-10] MEDS ORDERED: LORazepam 1 MG TABLET PO PRN (07:00)
[2025-03-10] MEDS ORDERED: LORazepam 1 MG TABLET PO SCH (09:00)
[2025-03-11] MEDS ORDERED: LORazepam 1 MG TABLET PO PRN (07:00)
== END 2025-03-09 12:55 | disposition home or self-care (01) | DRG 53 ==
LOC: EMS 14:37 → EDH 20:34 → 5N 03-08 09:09
PROVIDERS: ADMIT Internal Medicine; ATTEND Internal Medicine
DX: G40.409 Other generalized epilepsy and epileptic syndromes, not intractable, without status epilepticus (principal); S09.8XXA Other specified injuries of head, initial encounter; F10.239 Alcohol dependence with withdrawal, unspecified; E87.6 Hypokalemia; F10.229 Alcohol dependence with intoxication, unspecified; F14.90 Cocaine use, unspecified, uncomplicated; W18.39XA Other fall on same level, initial encounter; Z79.899 Other long term (current) drug therapy; Y93.89 Activity, other specified; Y92.89 Other specified places as the place of occurrence of the external cause; Y99.8 Other external cause status; Z87.891 Personal history of nicotine dependence; Z87.820 Personal history of traumatic brain injury
CPT/HCPCS: 70450; 71045; 72125; 80048; 80076; 80185; 80307; 81003; 82550; 83735; 83880; 84484; 85025; 90471; 90715; 93005; 96365; 96367; 97166; 97535; 99285; G0378; G0480; J0712; J1165; J1644; J7050; J7060; 36415-L1; 36415-TC

== ENCOUNTER 2025-06-12 14:58 | Emergency (ER) | payer OTHER ==
[~2025-06-12] VITALS: Ht 165.1 cm; Wt 84.9 kg
[~2025-06-12 14:58] MED LIST changes: -GABA-529 PO; -PHEN100C74 PO
[2025-06-12 15:10] VITALS: TEMP 97.9
[2025-06-12 15:25] LABS: PLATELET COUNT (AUTO) 248 K/uL (150-450); RED BLOOD CELL COUNT(AUTO) 4.40 MIL/uL (4.50-5.90); RED CELL DISTRIBUTION WIDTH 14.3 % (11.5-14.5); WHITE BLOOD COUNT (AUTO) 5.2 K/uL (4.5-11.0)
[2025-06-12 15:36] LABS: APPEARANCE,URINE CLEAR (CLEAR); GLUCOSE, URINE (UA) NEGATIVE (NEGATIVE); LEUKOCYTE ESTERASE ,URINE NEGATIVE (NEGATIVE); NITRATE,URINE NEGATIVE (NEGATIVE); OCCULT BLOOD,URINE NEGATIVE (NEGATIVE); PH,URINE DRUG SCREEN 5.0 (5.0-8.0); SPECIFIC GRAVITIY, URINE 1.006 (1.003-1.030)
[2025-06-12 15:37] LABS: CALCIUM, TOTAL 8.4 mg/dL (8.8-10.5); CREATININE 1.02 mg/dL (0.60-1.30); GLOMERULAR FILTR. RATE CALC > 60 mL/min (>60); GLUCOSE,RANDOM 99 mg/dL (70-110); SODIUM SERUM 134 mmol/L (136-145); UREA NITROGEN, BLOOD 8 mg/dL (7-18)
[2025-06-12 15:42] LABS: ALCOHOL, URINE DRUG SCREEN NEGATIVE (NEGATIVE); AMPHET/METH SCREEN,URINE NEGATIVE (NEGATIVE); BARBITURATE SCREEN, URINE NEGATIVE (NEGATIVE); CANNABINOID SCREEN,URINE POSITIVE (NEGATIVE); COCAINE SCREEN,URINE NEGATIVE (NEGATIVE); METHADONE SCREEN, URINE NEGATIVE (NEGATIVE)
[2025-06-12 16:58] VITALS: BP 118/62; PULSE 69; RESP 18; O2SAT 96
[2025-06-12] MEDS ORDERED: LEVE-71 PO (17:32)
[2025-06-12] MEDS: GABAPENTIN 300 MG CAPSULE PO ONE (18:00)
== END 2025-06-12 18:02 | disposition home or self-care (01) ==
LOC: EMS 14:58
DX: R56.9 Unspecified convulsions (principal); F17.210 Nicotine dependence, cigarettes, uncomplicated; F10.90 Alcohol use, unspecified, uncomplicated; Z79.899 Other long term (current) drug therapy; Z87.820 Personal history of traumatic brain injury; Y90.9 Presence of alcohol in blood, level not specified
CPT/HCPCS: 99283; 80048; 81003; 85025; 36415; 80307; G0480

== ENCOUNTER 2025-11-14 19:11 | Emergency (ER) | payer OTHER ==
[~2025-11-14] VITALS: Ht 172.7 cm; Wt 77.3 kg
[2025-11-14 19:19] VITALS: TEMP 98.8
[2025-11-14] MEDS: LevETIRAcetam 1,000 MG in DEXTROSE 5%-WATER 100 ML IV ONE (20:30)
[2025-11-14 21:01] VITALS: BP 138/70; PULSE 69; RESP 16; O2SAT 97
[2025-11-14 21:10] LABS: PLATELET COUNT (AUTO) 262 K/uL (150-450); RED BLOOD CELL COUNT(AUTO) 4.34 MIL/uL (4.50-5.90); RED CELL DISTRIBUTION WIDTH 14.6 % (11.5-14.5); WHITE BLOOD COUNT (AUTO) 6.9 K/uL (4.5-11.0)
[2025-11-14 21:18] LABS: CALCIUM, TOTAL 8.7 mg/dL (8.8-10.5); CREATININE 1.04 mg/dL (0.60-1.30); GLOMERULAR FILTR. RATE CALC > 60 mL/min (>60); GLUCOSE,RANDOM 96 mg/dL (70-110); SODIUM SERUM 140 mmol/L (136-145); UREA NITROGEN, BLOOD 15 mg/dL (7-18)
[2025-11-14 21:25] LABS: ASPARTATE AMINOTRANSFERASE 20 U/L (15-37); TOTAL PROTEIN, SERUM 7.0 g/dL (6.4-8.2)
[2025-11-14 21:27] LABS: ALCOHOL, BLOOD (SERUM) < 3 mg/dL (0-10)
[2025-11-14] MEDS ORDERED: LEVE-71 PO (22:11)
== END 2025-11-15 01:18 | disposition home or self-care (01) ==
LOC: EMS 19:11
DX: G40.409 Other generalized epilepsy and epileptic syndromes, not intractable, without status epilepticus (principal); F17.210 Nicotine dependence, cigarettes, uncomplicated; F10.20 Alcohol dependence, uncomplicated; Z79.899 Other long term (current) drug therapy; Y90.9 Presence of alcohol in blood, level not specified
CPT/HCPCS: 99284; 96374; 80048; 80076; 85025; 36415; J0712; G0480; J7060